=== PATIENT | male | born 1970 | race African-American/Black ===

== ENCOUNTER → 2016-10-02 | Outpatient (CLI) | payer MEDICAID ==
[2016-10-02 13:56] LABS: ABSOLUTE EOSINOPHILS # (AUTO) 0.7 10^3/uL (0.0-0.6); ABSOLUTE MONOCYTES (AUTO) 0.7 10^3/uL (0.1-1.4); ABSOLUTE NEUT (AUTO) 7.1 10^3/uL (1.7-8.2); BASOPHILS % (AUTO) 0.4 % (0-2); EOSINOPHILS % (AUTO) 5.8 % (0-6); HEMATOCRIT 43.8 % (37.9-51.0); HEMOGLOBIN 14.7 g/dL (13.5-17.0); HGB HCT DIFFERENCE 0.3; LYMPHOCYTES % (AUTO) 31.8 % (13-45); MEAN CORPUSCULAR HEMOGLOBIN 28.4 pg (27.0-33.4); MEAN CORPUSCULAR HGB CONC 33.5 g/dL (32.0-36.0); MEAN CORPUSCULAR VOLUME 85 fl (80-97); MONOCYTES % (AUTO) 5.6 % (3-13); RED BLOOD COUNT 5.16 10^6/uL (4.35-5.55); RED CELL DISTRIBUTION WIDTH 15.9 % (11.5-14.0); SEGMENTED NEUTROPHILS % (AUTO) 56.4 % (42-78); WHITE BLOOD COUNT 12.5 10^3/uL (4.0-10.5)
[2016-10-02 14:36] LABS: ERYTHROCYTE SEDIMENTATION RATE 9 mm/hr (0-15)
== END ==
LOC: OD 13:15
PROVIDERS: ATTEND Orthopaedic Surgery
DX: S61.452A Open bite of left hand, initial encounter (principal); X58.XXXA Exposure to other specified factors, initial encounter
CPT/HCPCS: 36415; 85025; 85652; 86140

== ENCOUNTER 2017-07-11 14:52 | Emergency (ER) | payer MEDICAID ==
--- NOTE | 2017-07-11 15:58 | ER Document Report ---
ED General - General Chief Complaint: Chest Pain Stated Complaint: BACK PAIN Time Seen by Provider: 07/11/17 15:44 Notes: 46-year-old male smoker presents with chest pain left-sided, associated with left scapular pain, the pain does not radiate but they started the same time. They were intermittent for 2 days and had not been constant since he woke up this morning. Described as dull and relieved when he puts his hand on his left chest. Certain positions make it worse as well. Nonpleuritic. Mild shortness of breath and cough which is been constant for him given that he is a smoker. No phlegm no hemoptysis no leg swelling. Apparently had a negative stress test here a couple years back. TRAVEL OUTSIDE OF THE [place] IN LAST 30 DAYS: No - Related Data Allergies/Adverse Reactions: acetaminophen Allergy (Verified 07/11/17 16:37) Past Medical History - Social History Smoking Status: Current Every Day Smoker Smoking Education Provided: Yes - The patient ED visit today was directly related to their abuse of tobacco. Family History: Reviewed & Not Pertinent, Hypertension - Past Medical History Cardiac Medical History: Reports: Hx Hypertension Denies: Hx Heart Attack Psychiatric Medical History: Reports: Hx Anxiety, Hx Attention Deficit Hyperactivity Disorder, Hx Depression, Hx Post Traumatic Stress Disorder Past Surgical History: Reports: Hx Orthopedic Surgery - Ganglion cyst - Immunizations Hx Diphtheria, Pertussis, Tetanus Vaccination: Yes Physical Exam - Vital signs Vitals: Resp Pulse Ox 13 94 07/11/17 15:47 07/11/17 15:47 Course - Re-evaluation Re-evalutation: 07/11/17 17:28 46 year male presents with chest pain of 3 days duration constant since this morning with some atypical and some typical features. He does not have a pleuritic component leg swelling or hemoptysis to suggest pulmonary embolus, no ripping or tearing to suggest aortic dissection. He does have pain in his back but they appear to occur at the same time. He has some components such as when he touches it feels better, which suggest musculoskeletal etiology. We will do troponin and EKG, basic labs and reassess. Heart score 3 points/ Low Score (0-3 points)/Risk of MACE Of 0.9-1.7% 07/11/17 17:55 Reassessed at 5:55 PM. Patient 8 feels well. Troponin is negative. Hemoglobin slightly high. Likely from COPD but needs reassessment. We will do this as an outpatient. He thinks he has heartburn which he has every day. His workup today is negative and his heart score is 3 which makes him appropriate for outpatient stress testing. 07/11/17 17:56 - Vital Signs Vital signs: Temp Pulse Resp BP Pulse Ox 17 137/81 H 95 07/11/17 16:01 07/11/17 16:00 07/11/17 16:01 - Laboratory Result Diagrams: 07/11/17 15:45 07/11/17 17:00 Laboratory results interpreted by me: 07/11/17 07/11/17 15:45 17:00 WBC 10.7 H Hgb 18.5 H MCH 40.0 H MCHC 44.6 H Sodium 136.0 L Glucose 353 H - Diagnostic Test Radiology reviewed: Reports reviewed - EKG Interpretation by Me EKG shows normal: Sinus rhythm, [place] Rate: Normal When compared to previous EKG there are: Previous EKG unavailable Additional EKG results interpreted by me: 07/11/17 17:56 ST or T-wave changes noted Discharge - Discharge Clinical Impression: Chest pain Qualifiers: Chest pain type: unspecified Qualified Code(s): R07.9 - Chest pain, unspecified Condition: Good Disposition: HOME, SELF-CARE Instructions: Chest Pain of Unclear Cause ([facility]) Additional Instructions: As we discussed please contact your regular doctor at [facility] and asked them to schedule you for a stress test. Please also have your blood sugar tested because it was slightly high today
[2017-07-11 16:34] LABS: ABSOLUTE BASOPHILS # (AUTO) 0.1 10^3/uL (0.0-0.2); ABSOLUTE EOSINOPHILS # (AUTO) 0.2 10^3/uL (0.0-0.6); ABSOLUTE LYMPHOCYTES (AUTO) 3.3 10^3/uL (0.5-4.7); ABSOLUTE MONOCYTES (AUTO) 0.5 10^3/uL (0.1-1.4); ABSOLUTE NEUT (AUTO) 6.6 10^3/uL (1.7-8.2); BASOPHILS % (AUTO) 1.1 % (0-2); EOSINOPHILS % (AUTO) 1.4 % (0-6); HEMATOCRIT 41.3 % (37.9-51.0); LYMPHOCYTES % (AUTO) 30.6 % (13-45); MEAN CORPUSCULAR VOLUME 90 fl (80-97); MONOCYTES % (AUTO) 4.8 % (3-13); PLATELET COUNT 241 10^3/uL (150-450); RED BLOOD COUNT 4.61 10^6/uL (4.35-5.55); SEGMENTED NEUTROPHILS % (AUTO) 62.1 % (42-78); TOTAL CELLS COUNTED % (AUTO) 100 %; WHITE BLOOD COUNT 10.7 10^3/uL (4.0-10.5)
[2017-07-11 17:24] LABS: ANION GAP 14 (5-19)
[2017-07-11 17:27] LABS: BLOOD UREA NITROGEN 13 mg/dL (7-20); CALCIUM 9.2 mg/dL (8.4-10.2); GLUCOSE 353 mg/dL (75-110)
[2017-07-11 17:28] LABS: CARBON DIOXIDE 23 mmol/L (22-30); CHLORIDE 99 mmol/L (98-107); POTASSIUM 4.3 mmol/L (3.6-5.0)
--- NOTE | 2017-07-11 17:28 | RADIOLOGY REPORT (SQ) ---
EXAM DESCRIPTION: CHEST PA/LAT COMPLETED DATE/TIME: 07/11/2017 5:08 pm REASON FOR STUDY: SMOKER, SOB AND CP COMPARISON: None. EXAM PARAMETERS: NUMBER OF VIEWS: two views TECHNIQUE: Digital Frontal and Lateral radiographic views of the chest acquired. RADIATION DOSE: NA LIMITATIONS: none FINDINGS: LUNGS AND PLEURA: No opacities, masses or pneumothorax. No pleural effusion. MEDIASTINUM AND HILAR STRUCTURES: No masses or contour abnormalities. HEART AND VASCULAR STRUCTURES: Heart normal size. No evidence for failure. BONES: No acute findings. HARDWARE: None in the chest. OTHER: No other significant finding. IMPRESSION: NO SIGNIFICANT RADIOGRAPHIC FINDING IN THE CHEST. TECHNICAL DOCUMENTATION: JOB ID: [id number] [employer]- All Rights Reserved
[2017-07-11 18:06] VITALS: BP 144/99
[2017-07-12 11:07] LABS: HEMOGLOBIN 13.9 g/dL (13.5-17.0); MEAN CORPUSCULAR HEMOGLOBIN 30.2 pg (27.0-33.4); MEAN CORPUSCULAR HGB CONC 33.7 g/dL (32.0-36.0)
--- NOTE | 2017-07-14 12:38 | EKG REPORT ---
SEVERITY:- ABNORMAL ECG - SINUS RHYTHM LEFT ANTERIOR FASCICULAR BLOCK : Confirmed by: Iva Mendoza MD 14-Jul-2017 12:37:01
== END 2017-07-11 18:07 | disposition home or self-care (01) ==
LOC: ER 14:52
DX: R07.9 Chest pain, unspecified (principal); M54.9 Dorsalgia, unspecified; R51 Headache; R06.02 Shortness of breath; F17.200 Nicotine dependence, unspecified, uncomplicated
CPT/HCPCS: 36415; 71020; 80048; 84484; 85025; 93005; 93010; 99285

== ENCOUNTER 2017-07-12 09:38 | Inpatient (IN) | payer MEDICAID ==
[2017-07-12] MEDS ORDERED: ASPIRIN 81 MG TABLET, CHEWABLE PO ONE (09:45)
[2017-07-12] MEDS ORDERED: ONDANSETRON HCL INJ/PF 4 MG/2 ML SDV IV ONE (10:08)
[2017-07-12] MEDS ORDERED: MORPHINE SULFATE 10 MG/ML INJ IV ONE (10:08)
[2017-07-12] MEDS ORDERED: NORMAL SALINE 500 ML IV ONE (10:09)
--- NOTE | 2017-07-12 10:15 | ER Document Report ---
ED General - General Chief Complaint: Chest Pain Stated Complaint: CHEST PAIN Time Seen by Provider: 07/12/17 09:45 Notes: 46-year-old male presents with chest pain. He was seen yesterday by me, for some chest pain and back pain. He had a negative EKG and troponin was discharged home, for outpatient stress testing. He returned stating that the pain continues. The pain is just as the same and it still also hurts in his left scapular region. This is been constant all night since he left. He also now has pain across his upper abdomen "like I have to prove" however he only took a small amount. No vomiting or fever. No diarrhea. He was seen at triage where CT angios of his aorta was ordered. TRAVEL OUTSIDE OF THE [place] IN LAST 30 DAYS: No - Related Data Allergies/Adverse Reactions: acetaminophen Allergy (Verified 07/11/17 16:37) Past Medical History - Social History Smoking Status: Current Every Day Smoker Chew tobacco use (# tins/day): No Smoking Education Provided: Yes - The patient ED visit today was directly related to their abuse of tobacco. Frequency of alcohol use: None Drug Abuse: None Family History: Reviewed & Not Pertinent, Hypertension Patient has suicidal ideation: No Patient has homicidal ideation: No - Past Medical History Cardiac Medical History: Reports: Hx Hypertension Denies: Hx Heart Attack Renal/ Medical History: Denies: Hx Peritoneal Dialysis Psychiatric Medical History: Reports: Hx Anxiety, Hx Attention Deficit Hyperactivity Disorder, Hx Depression, Hx Post Traumatic Stress Disorder Past Surgical History: Reports: Hx Orthopedic Surgery - Ganglion cyst - Immunizations Hx Diphtheria, Pertussis, Tetanus Vaccination: Yes Review of Systems - Review of Systems Notes: REVIEW OF SYSTEMS GEN: Denies fever, chills, weight loss ENT: Denies sore throat, nasal discharge, ear pain EYES: Denies blurry vision, eye pain, discharge CV: Chest pain, palpitations, edema RESP: Denies cough, shortness of breath, wheezing GI: Pain, denies nausea, vomiting, diarrhea MSK: Denies joint pain/swelling, edema, back pain SKIN: Denies rash, skin lesions LYMPH: Denies swollen glands/lymph nodes NEURO: Denies headache, focal weakness or numbness, dizziness PSYCH: Denies depression, suicidal or homicidal ideation PHYSICAL EXAMINATION General: Mild distress. Head: Atraumatic, normocephalic ENT: Mouth normal, oropharynx moist, no exudates or tonsillar enlargement Eyes: Conjunctiva normal, pupils equal, lids normal Neck: No JVD, supple, no guarding CVS: Normal rate, regular rhythm, no murmurs Resp: No resp distress, equal and normal breath sounds bilaterally GI: Nondistended, soft, no tenderness to palpation, no rebound or guarding Ext: No deformities, no edema, normal range of motion in upper and lower ext Back: No CVA or midline TTP Skin: No rash, warm Lymphatic: No lymphadeopathy noted Neuro: Awake, alert. Face symmetric. GCS 15. Physical Exam - Vital signs Vitals: Temp Pulse Resp BP Pulse Ox 98.6 F 104 H 20 143/89 H 95 07/12/17 09:49 07/12/17 09:49 07/12/17 09:49 07/12/17 09:49 07/12/17 09:49 Course - Re-evaluation Re-evalutation: 07/12/17 10:54 46-year-old male presents with ongoing chest pain. Negative troponin yesterday. Now has a separate abdominal pain. Concern for aortic dissection versus angina. Patient was already radiology for a CT of his aorta before I saw him. He was given nitroglycerin which brought his pain down some but it still hurts. His exam is normal without murmurs peripheral pulse deficits or focal lung findings. If his CTA is negative I am most concerned for unstable angina. Will admit him , consider Lovenox. 07/12/17 11:24 Labs show anion gap hyperglycemia and leukocytosis. I am concerned for diabetic ketoacidosis. The lab called to say that the sample was lipemic. This likely reflects extreme hyperlipidemia with developing pancreatitis and DKA. I think that as long as the troponin is negative I would shy away from cardiac etiology at this point. Patient will have a second IV started, IV fluids will be given for hydration, potassium will be given as well as insulin drip started with bolus. Discussed case with Dr. Zaragoza who will admit the [facility]. 07/12/17 11:28 - Vital Signs Vital signs: Temp Pulse Resp BP Pulse Ox 98.6 F 104 H 15 169/88 H 95 07/12/17 09:49 07/12/17 09:49 07/12/17 10:54 07/12/17 10:54 07/12/17 10:54 - Laboratory Result Diagrams: 07/12/17 10:20 07/12/17 10:20 Laboratory results interpreted by me: 07/12/17 07/12/17 10:20 10:20 WBC 18.4 H Seg Neutrophils % 78.2 H Absolute Neutrophils 14.4 H Sodium 134.9 L Carbon Dioxide 16 L Glucose 380 H Direct Bilirubin 0.5 H ALT 84 H Alkaline Phosphatase 142 H Total Protein 8.5 H - Diagnostic Test Radiology reviewed: Image reviewed, Reports reviewed - EKG Interpretation by Me EKG shows normal: Sinus rhythm Rate: Tachycardia Voltage: Increased voltage When compared to previous EKG there are: Changes noted - Subtle changes in the morphology of the J-point/ST/T waves in the precordium but no natalio ST elevation or depression Critical Care Note - Critical Care Note Total time excluding time spent on procedures (mins): 35 Comments: The above patient is critically ill. Not including procedures, but including direct re-evaluations, speaking with patient and/or consultants, interpreting results, and documenting, I spent the total amount of minute listed listed above on critical care time Discharge - Discharge Clinical Impression: High anion gap metabolic acidosis Diabetic ketoacidosis Qualifiers: Diabetes mellitus type: type 2 Diabetes mellitus complication detail: without coma Qualified Code(s): E11.10 - Type 2 diabetes mellitus with ketoacidosis without coma Condition: Critical Disposition: ADMITTED INPATIENT Unit Admitted: [facility]
--- NOTE | 2017-07-12 10:17 | ER Document Report ---
ED Medical Screen (RME) - General Chief Complaint: Chest Pain Stated Complaint: CHEST PAIN Time Seen by Provider: 07/12/17 09:45 Notes: Patient is a 46-year-old male who comes in complaining of left-sided chest pain that goes into his back. Patient is not complaining of pain to his abdomen. States that pain has gotten worse since yesterday. He had been referred for outpatient stress testing. Denies any difficulty breathing or cough or fever. TRAVEL OUTSIDE OF THE [place] IN LAST 30 DAYS: No - Related Data Allergies/Adverse Reactions: acetaminophen Allergy (Verified 07/11/17 16:37) Past Medical History - Social History Chew tobacco use (# tins/day): No Frequency of alcohol use: None Drug Abuse: None - Past Medical History Cardiac Medical History: Reports: Hx Hypertension Denies: Hx Heart Attack Renal/ Medical History: Denies: Hx Peritoneal Dialysis Psychiatric Medical History: Reports: Hx Anxiety, Hx Attention Deficit Hyperactivity Disorder, Hx Depression, Hx Post Traumatic Stress Disorder Past Surgical History: Reports: Hx Orthopedic Surgery - Ganglion cyst - Immunizations Hx Diphtheria, Pertussis, Tetanus Vaccination: Yes Review of Systems - Review of Systems Cardiovascular: Chest pain Gastrointestinal: Abdominal pain Physical Exam - Vital signs Vitals: Temp Pulse Resp BP Pulse Ox 98.6 F 104 H 20 143/89 H 95 07/12/17 09:49 07/12/17 09:49 07/12/17 09:49 07/12/17 09:49 07/12/17 09:49 Interpretation: Tachycardic - General General appearance: Alert, Other - Appears uncomfortable - Respiratory Respiratory status: Tripod position Course - Re-evaluation Re-evalutation: 07/12/17 10:17 labs, cta ordered in triage. CT aware. IV being placed in triage - Vital Signs Vital signs: Temp Pulse Resp BP Pulse Ox 98.6 F 104 H 20 143/89 H 95 07/12/17 09:49 07/12/17 09:49 07/12/17 09:49 07/12/17 09:49 07/12/17 09:49
[2017-07-12 10:34] LABS: ABSOLUTE BASOPHILS # (AUTO) 0.1 10^3/uL (0.0-0.2); ABSOLUTE EOSINOPHILS # (AUTO) 0.1 10^3/uL (0.0-0.6); ABSOLUTE LYMPHOCYTES (AUTO) 2.9 10^3/uL (0.5-4.7); ABSOLUTE NEUT (AUTO) 14.4 10^3/uL (1.7-8.2); BASOPHILS % (AUTO) 0.4 % (0-2); EOSINOPHILS % (AUTO) 0.7 % (0-6); HEMATOCRIT 45.6 % (37.9-51.0); LYMPHOCYTES % (AUTO) 15.5 % (13-45); MEAN CORPUSCULAR VOLUME 90 fl (80-97); MONOCYTES % (AUTO) 5.2 % (3-13); PLATELET COUNT 239 10^3/uL (150-450); RED BLOOD COUNT 5.08 10^6/uL (4.35-5.55); RED CELL DISTRIBUTION WIDTH 13.5 % (11.5-14.0); SEGMENTED NEUTROPHILS % (AUTO) 78.2 % (42-78); TOTAL CELLS COUNTED % (AUTO) 100 %; WHITE BLOOD COUNT 18.4 10^3/uL (4.0-10.5)
[2017-07-12] MEDS: NITROGLYCERIN 0.4 MG/TAB 25 TAB/BOTTLE SL PRN ×2 (10:41→10:48)
[2017-07-12 10:57] LABS: MEAN CORPUSCULAR HEMOGLOBIN 30.1 pg (27.0-33.4); MEAN CORPUSCULAR HGB CONC 33.6 g/dL (32.0-36.0)
[2017-07-12 11:03] LABS: CREATINE KINASE MB 0.29 ng/mL (<4.55)
[2017-07-12 11:04] LABS: TROPONIN I 0.013 ng/mL
[2017-07-12] MEDS ORDERED: NICOTINE 14 MG/24 HR PATCH.TD24 TD ONE (11:14)
[2017-07-12 11:16] LABS: ALANINE AMINOTRANSFERASE 84 U/L (21-72); ALKALINE PHOSPHATASE 142 U/L (38-126); ANION GAP 18 (5-19); ASPARTATE AMINO TRANSFERASE 47 U/L (17-59); BLOOD UREA NITROGEN 7 mg/dL (7-20); CALCIUM 9.5 mg/dL (8.4-10.2); CARBON DIOXIDE 16 mmol/L (22-30); CHLORIDE 101 mmol/L (98-107); GLUCOSE 380 mg/dL (75-110); HEMOGLOBIN 15.3 g/dL (13.5-17.0); POTASSIUM 4.6 mmol/L (3.6-5.0); SODIUM 134.9 mmol/L (137-145)
[2017-07-12 11:17] LABS: BILIRUBIN,DIRECT 0.5 mg/dL (0.0-0.4); BILIRUBIN,TOTAL 0.6 mg/dL (0.2-1.3); CREATINE KINASE 67 U/L (55-170); TOTAL PROTEIN 8.5 g/dL (6.3-8.2)
[2017-07-12] MEDS ORDERED: FENTANYL CITRATE INJ/PF 100 MCG/2 ML AMPUL IV ONE (11:17)
[2017-07-12] MEDS ORDERED: NORMAL SALINE 100 ML with INSULIN REGULAR, HUMAN 100 UNIT IV PRN ×2 (11:19)
[2017-07-12] MEDS ORDERED: NORMAL SALINE 1000 ML 1,000 ML IV ONE (11:19)
[2017-07-12] MEDS ORDERED: INSULIN REG, HUMAN 100 UNIT/ML 3 ML VIAL (PYX) IV ONE (11:20)
[2017-07-12] MEDS ORDERED: LACTULOSE SYRUP 20 GM/30 ML UDCUP PO ONE ×2 (11:29→15:30)
[2017-07-12] MEDS ORDERED: HYDRALAZINE HCL INJ/PF 20 MG/1 ML SDV IV PRN (11:35)
[2017-07-12] MEDS ORDERED: DEXTROSE 50%-WATER 25 GM/50 ML DISP.SYRIN IV PRN ×2 (11:36)
[2017-07-12] MEDS ORDERED: GLUCAGON,HUMAN RECOMB 1 MG INJ IM PRN (11:36)
[2017-07-12] MEDS ORDERED: DEXTROSE 40% GEL 15 GM TUBE PO PRN ×2 (11:36)
[2017-07-12] MEDS ORDERED: ACETAMINOPHEN 325 MG TABLET PO PRN (11:36)
[2017-07-12] MEDS ORDERED: IPRATROPIUM/ALBUTEROL 0.5-2.5 MG/3 ML AMPUL NEB PRN (11:36)
[2017-07-12] MEDS ORDERED: MAG HYDROX/AL HYDROX/SIMETH SUSP 30 ML UDCUP PO PRN (11:36)
--- NOTE | 2017-07-12 11:42 | RADIOLOGY REPORT (SQ) ---
EXAM DESCRIPTION: CTA CHEST; CTA ABDOMEN/PELVIS W WO COMPLETED DATE/TIME: 07/12/2017 10:40 am REASON FOR STUDY: Chest pain; pain, evalaute aorta COMPARISON: Two-view chest 07/11/2017, 12/28/2011 CONTRAST TYPE AND DOSE: contrast/concentration: Isovue 370.00 mg/ml; Total Contrast Delivered: 85.0 ml; Total Saline Delivered: 70.0 ml RENAL FUNCTION: Creatinine 0.71 TECHNIQUE: CT angio of the chest performed using helical scanning technique with dynamic intravenous contrast injection. Multiplanar Maximum intensity projected images through the thoracic aorta and p ulmonary artery. Images reviewed with lung, soft tissue and bone windows. Reconstructed coronal and sagittal MPR images reviewed. All images stored on PACS. CT angio of the abdomen and pelvis performed with intravenous and without oral contrastusing helical scanning technique with dynamic intravenous contrast injection. Multiplanar Maximum intensity projec ale images of the abdominal aorta and major branches. Images reviewed with lung, soft tissue and bon e windows. Reconstructed coronal and sagittal MPR images reviewed. Delayed images for evaluation of the urinary system also acquired and evaluated. All images stored on PACS. All CT scanners at this facility use dose modulation, iterative reconstruction, and/or weight based d osing when appropriate to reduce radiation dose to as low as reasonably achievable (ALARA). [facility]: Dose Right [facility]: CareDose [facility]: Dose Right [facility]: Teradose 4D [facility]: Smart SpinVox RADIATION DOSE: CT Rad equipment meets quality standard of care and radiation dose reduction techniq ues were employed. CTDIvol: 11.3 - 22.1 mGy. DLP: 2485 mGy-cm. . LIMITATIONS: None. FINDINGS: CHEST: LUNGS AND PLEURA: No opacities, nodules, masses. No pneumothorax. No effusions. HILAR AND MEDIASTINAL STRUCTURES: No identified masses or abnormal nodes. HEART AND VASCULAR STRUCTURES: No aneurysm or dissection. No acute pulmonary emboli. No pericardial effusion. HARDWARE: None. THYROID AND OTHER SOFT TISSUES: No masses. No adenopathy. BONES: No significant finding. OTHER: No other significant finding. ABDOMEN AND PELVIS: LIVER: Normal size. No masses. No dilated ducts. SPLEEN: Normal size. No focal lesions. PANCREAS: There is retroperitoneal inflammation, along the uncinate process of pancreas and 3rd porti on of duodenum from acute pancreatitis. No well circumscribed abscess or fluid collection/ pseudocys t. No free intraperitoneal fluid. No lesser sac fluid. Normal contrast enhancement of the superior mesenteric artery and vein, and portal vein. Findings discussed with Dr. Foy. GALLBLADDER: No identified stones by CT criteria. No inflammatory changes to suggest cholecystitis. ADRENAL GLANDS: No significant masses or asymmetry. RIGHT KIDNEY AND URETER: No solid masses. No significant calcification. No hydronephrosis or hydroure ter. LEFT KIDNEY AND URETER: No solid masses. No significant calcification. No hydronephrosis or hydrouret er. AORTA AND VESSELS: No aneurysm. No dissection. Renal arteries, SMA, celiac without stenosis. RETROPERITONEUM: No retroperitoneal adenopathy, hemorrhage or masses. BOWEL AND PERITONEAL CAVITY: No masses or inflammatory changes. No free fluid or peritoneal masses. APPENDIX: Normal. ABDOMINAL WALL: No masses. No hernias. BONES: No significant or acute findings. PELVIS: No other significant finding. No free pelvic fluid. Bladder prostate rectum unremarkable. No adenopathy. IMPRESSION: No CT angio evidence of thoracic or abdominal aortic dissection No acute pulmonary emboli There are early changes of pancreatitis surround the uncinate process of pancreas, with retroperitone al fluid present. NORMAL CT OF THE ABDOMEN AND PELVIS WITH ORAL AND INTRAVENOUS CONTRAST. TECHNICAL DOCUMENTATION: JOB ID: [id number] Quality ID # [id number]: Final reports with documentation of one or more dose reduction techniques (e.g., Au tomated exposure control, adjustment of the mA and/or kV according to patient size, use of iterative reconstruction technique) 2010 [employer]- All Rights Reserved
[2017-07-12] MEDS: POTASSI CL 20 MEQ/50 ML RIDER 20 MEQ/50 ML RTUPB IV SCH ×2 (11:56→13:43)
[2017-07-12] MEDS ORDERED: INSULIN REG, HUMAN 100 UNIT/ML 3 ML VIAL (PYX) ONE (11:59)
[2017-07-12] MEDS: HUM INSULIN NPH/REG INSULIN HM 100 UNIT/1 ML 3 ML SUBCUT SCH ×2 (13:43→23:39)
[2017-07-12] MEDS: HEPARIN SOD (PORCINE) 5,000 UNIT/ML 1 ML SYRINGE SUBCUT SCH ×2 (13:44→21:27)
[2017-07-12] MEDS: KETOROLAC TROMETHAMINE INJ/PF 30 MG/1 ML SDV IV PRN ×2 (13:44→19:49)
[2017-07-12] MEDS ORDERED: INFLUENZA ADLT QUAD (36MOS+) 2017-18 VAC 0.5 ML SYR IM PRN (13:56)
[2017-07-12 15:35] LABS: ANION GAP 14 (5-19)
[2017-07-12 15:37] LABS: BLOOD UREA NITROGEN 6 mg/dL (7-20); CALCIUM 8.7 mg/dL (8.4-10.2); CARBON DIOXIDE 17 mmol/L (22-30); CHLORIDE 106 mmol/L (98-107); GLUCOSE 199 mg/dL (75-110); POTASSIUM 4.1 mmol/L (3.6-5.0); SODIUM 137.3 mmol/L (137-145)
[2017-07-12] MEDS ORDERED: POTASSIUM CHLORIDE 20 MEQ/50 ML RTU IV ONE (16:00)
--- NOTE | 2017-07-12 16:31 | PDOC CONSULTATION ---
Consultation Consult Date: 07/12/17 Consult reason:: Pancreatitis History of Present Illness Admission Date/PCP: 07/12/17 11:46 KIMBERLY RASMUSSEN PA-C Patient complains of: Upper quadrant pains radiating to left back History of Present Illness: RAYNA YOUNG is a 46 year old male C/O of left chest pains and seen at ED last night and sent home when cardiac work-up was clear.Came back this am at ED with severe upper abdominal pains and left back pains with nausea. Ct scan of abd showed pancreatitis with retroperitoneal fluid. No stone in gallbladder. His blood though was lipemic. BS also elevated. + family history for DM. Father has DM. Past Medical History Cardiac Medical History: Reports: Hypertension Denies: Myocardial Infarction Psychiatric Medical History: Reports: Attention Deficit Hyperactivity Disorder, Depression, Post Traumatic Stress Disorder Hematology: Denies: Anemia, Sickle Cell Disease Past Surgical History Past Surgical History: Reports: Orthopedic Surgery - Ganglion cyst Social History Smoking Status: Current Every Day Smoker Cigarettes Packs Per Day: 0.5 Frequency of Alcohol Use: Rare Hx Recreational Drug Use: No Hx Prescription Drug Abuse: No - Advance Directive Resuscitation Status: Full Code Family History Family History: Reviewed & Not Pertinent, Hypertension Parental Family History Reviewed: Yes - father has DM Children Family History Reviewed: No Sibling(s) Family History Reviewed.: No Medication/Allergy Home Medications: No Home Medications 07/12/17 Allergies/Adverse Reactions: acetaminophen Allergy (Verified 07/11/17 16:37) Review of Systems Constitutional: PRESENT: other - no fever/chills Eyes: PRESENT: other - no visual or hearing problems Cardiovascular: PRESENT: chest pain Respiratory: PRESENT: other - no hemoptysis Gastrointestinal: PRESENT: abdominal pain, nausea Genitourinary: PRESENT: other - no dysuria Musculoskeletal: PRESENT: back pain Integumentary: PRESENT: other - no rash Neurological: PRESENT: other - no seizures Psychiatric: PRESENT: other - no hallucinations Endocrine: PRESENT: other - no polyuria/polydipsia Hematologic/Lymphatic: PRESENT: other - no easy bruisability Physical Exam Vital Signs: Temp Pulse Resp BP Pulse Ox 98.3 F 94 19 131/79 H 97 07/12/17 13:04 07/12/17 14:00 07/12/17 13:04 07/12/17 13:04 07/12/17 13:04 General appearance: PRESENT: mild distress Head exam: PRESENT: atraumatic Eye exam: PRESENT: conjunctiva pink Mouth exam: PRESENT: moist, tongue midline Neck exam: PRESENT: full ROM Respiratory exam: PRESENT: clear to auscultation anastasia Cardiovascular exam: PRESENT: RRR Pulses: PRESENT: normal radial pulses Vascular exam: PRESENT: normal capillary refill GI/Abdominal exam: PRESENT: tenderness - upper abdomen Rectal exam: PRESENT: deferred Extremities exam: PRESENT: full ROM Musculoskeletal exam: PRESENT: ambulatory Neurological exam: PRESENT: alert, oriented to person, oriented to place, oriented to time, oriented to situation Psychiatric exam: PRESENT: appropriate affect Focused psych exam: PRESENT: restlessness Skin exam: PRESENT: normal color, warm Results Laboratory Results: 07/12/17 14:48 07/12/17 14:48 Sodium 137.3 Potassium 4.1 Chloride 106 Carbon Dioxide 17 L Anion Gap 14 BUN 6 L Creatinine 0.66 Est GFR ( Amer) > 60 Est GFR (Non-Af Amer) > 60 Glucose 199 H Calcium 8.7 Impressions: Chest/Abdomen CTA 07/12/17 10:04 IMPRESSION: No CT angio evidence of thoracic or abdominal aortic dissection No acute pulmonary emboli There are early changes of pancreatitis surround the uncinate process of pancreas, with retroperitoneal fluid present. NORMAL CT OF THE ABDOMEN AND PELVIS WITH ORAL AND INTRAVENOUS CONTRAST. Abdomen/Pelvis CTA 07/12/17 10:08 IMPRESSION: No CT angio evidence of thoracic or abdominal aortic dissection No acute pulmonary emboli There are early changes of pancreatitis surround the uncinate process of pancreas, with retroperitoneal fluid present. NORMAL CT OF THE ABDOMEN AND PELVIS WITH ORAL AND INTRAVENOUS CONTRAST. Assessment & Plan - Time Time Spent: 30 to 50 Minutes - Inpatient Certification Medical Necessity: Significant Comorbidiites Make Outpatient Treatment Too Risky , Need For IV Fluids, Need for Pain Control, Risk of Complication if Not Cared For in Hospital - Plan Summary Plan Summary: Hydrate Pain mx US gallbladder Monitor labs CBC/Lipase/LFTs
[2017-07-12] MEDS ORDERED: HYDROMORPHONE HCL INJ/PF 2 MG/ML AMPULE ONE (16:48)
--- NOTE | 2017-07-12 16:50 | PDOC H&P ---
History of Present Illness Admission Date/PCP: 07/12/17 11:46 KIMBERLY RASMUSSEN PA-C Patient complains of: Abdominal pain and nausea History of Present Illness: RAYNA YOUNG is a 46 year old male with a past medical history of ADD, hypertension and tobacco Dependence. Patient presents with 48 hours of nausea and abdominal pain denying fever chills or chest pain. In the emergency room he was found to have metabolic acidosis with hyperglycemia and a CT of the abdomen showing pancreatic inflammation with retroperitoneal fluid. He is referred to the hospitalist for admission. Patient denies alcohol or recent illness or medications. He does admit frequent nausea, polydipsia and polyuria. Past Medical History Cardiac Medical History: Reports: Hypertension Denies: Myocardial Infarction Psychiatric Medical History: Reports: Attention Deficit Hyperactivity Disorder, Depression, Post Traumatic Stress Disorder Hematology: Denies: Anemia, Sickle Cell Disease Past Surgical History Past Surgical History: Reports: Orthopedic Surgery - Ganglion cyst Social History Information Source: Patient Smoking Status: Current Every Day Smoker Cigarettes Packs Per Day: 0.5 Frequency of Alcohol Use: Rare Hx Recreational Drug Use: No Hx Prescription Drug Abuse: No - Advance Directive Resuscitation Status: Full Code Family History Family History: DM, Hypertension Parental Family History Reviewed: Yes Children Family History Reviewed: Yes Sibling(s) Family History Reviewed.: Yes Medication/Allergy Home Medications: No Home Medications 07/12/17 Allergies/Adverse Reactions: acetaminophen Allergy (Verified 07/11/17 16:37) Review of Systems Constitutional: PRESENT: as per HPI, fatigue. ABSENT: chills, fever(s), headache(s), weight gain, weight loss Eyes: ABSENT: visual disturbances Ears: ABSENT: hearing changes Cardiovascular: ABSENT: chest pain, dyspnea on exertion, edema, orthropnea, palpitations Respiratory: ABSENT: cough, hemoptysis Gastrointestinal: PRESENT: abdominal pain, bloating, constipation, nausea, vomiting - Gastric content only no blood. ABSENT: coffee ground emesis, diarrhea Genitourinary: ABSENT: dysuria, hematuria Musculoskeletal: ABSENT: joint swelling Integumentary: ABSENT: rash, wounds Neurological: ABSENT: abnormal gait, abnormal speech, confusion, dizziness, focal weakness, syncope Psychiatric: ABSENT: anxiety, depression, homidical ideation, suicidal ideation Endocrine: PRESENT: polydipsia, polyphagia, polyuria Hematologic/Lymphatic: ABSENT: easy bleeding, easy bruising Physical Exam Vital Signs: Temp Pulse Resp BP Pulse Ox 98.3 F 94 19 131/79 H 97 07/12/17 13:04 07/12/17 14:00 07/12/17 13:04 07/12/17 13:04 07/12/17 13:04 General appearance: PRESENT: mild distress, well-developed, well-nourished Head exam: PRESENT: atraumatic, normocephalic Eye exam: PRESENT: conjunctiva pink, EOMI, PERRLA. ABSENT: scleral icterus Ear exam: PRESENT: normal external ear exam Mouth exam: PRESENT: moist, tongue midline Neck exam: ABSENT: carotid bruit, JVD, lymphadenopathy, thyromegaly Respiratory exam: PRESENT: clear to auscultation anastasia. ABSENT: rales, rhonchi, wheezes Cardiovascular exam: PRESENT: RRR. ABSENT: diastolic murmur, rubs, systolic murmur Pulses: PRESENT: normal dorsalis pedis pul Vascular exam: PRESENT: normal capillary refill GI/Abdominal exam: PRESENT: soft. ABSENT: distended, guarding, mass, organolmegaly, rebound, tenderness Rectal exam: PRESENT: deferred Extremities exam: PRESENT: full ROM. ABSENT: calf tenderness, clubbing, pedal edema Neurological exam: PRESENT: alert, awake, oriented to person, oriented to place , oriented to time, oriented to situation, CN II-XII grossly intact. ABSENT: motor sensory deficit Psychiatric exam: PRESENT: appropriate affect, normal mood. ABSENT: homicidal ideation, suicidal ideation Skin exam: PRESENT: dry, intact, warm. ABSENT: cyanosis, rash Results Laboratory Results: 07/12/17 14:48 07/12/17 14:48 Sodium 137.3 Potassium 4.1 Chloride 106 Carbon Dioxide 17 L Anion Gap 14 BUN 6 L Creatinine 0.66 Est GFR ( Amer) > 60 Est GFR (Non-Af Amer) > 60 Glucose 199 H Calcium 8.7 Impressions: Chest/Abdomen CTA 07/12/17 10:04 IMPRESSION: No CT angio evidence of thoracic or abdominal aortic dissection No acute pulmonary emboli There are early changes of pancreatitis surround the uncinate process of pancreas, with retroperitoneal fluid present. NORMAL CT OF THE ABDOMEN AND PELVIS WITH ORAL AND INTRAVENOUS CONTRAST. Abdomen/Pelvis CTA 07/12/17 10:08 IMPRESSION: No CT angio evidence of thoracic or abdominal aortic dissection No acute pulmonary emboli There are early changes of pancreatitis surround the uncinate process of pancreas, with retroperitoneal fluid present. NORMAL CT OF THE ABDOMEN AND PELVIS WITH ORAL AND INTRAVENOUS CONTRAST. Assessment & Plan - Diagnosis (1) Diabetic ketoacidosis Qualifiers: Diabetes mellitus type: type 2 Diabetes mellitus complication detail: without coma Qualified Code(s): E11.10 - Type 2 diabetes mellitus with ketoacidosis without coma Is this a current diagnosis for this admission?: Yes Plan: Diabetic ketoacidosis patient has had some degree of polyuria polydipsia with nausea and uncontrolled hyperglycemia with supporting labs. Patient will receive IV fluids IV insulin serial chemistries every 6 hours for evaluation for electrolyte repletion. New diagnosis of diabetes and diabetic education (2) Pancreatitis Is this a current diagnosis for this admission?: Yes Plan: Atypical inflammation of the pancreas with retroperitoneal fluid and a normal lipase. N.p.o., IV fluid challenge, supportive measures and surgical consult (3) Chest pain Qualifiers: Chest pain type: unspecified Qualified Code(s): R07.9 - Chest pain, unspecified Is this a current diagnosis for this admission?: Yes Plan: Atypical chest pain though the patient's pain is atypical there are multiple risk factors for coronary artery disease and subsequently will observe and evaluation of acute coronary syndrome versus coronary artery disease with anginal equivalents. Cardiac monitoring blood pressure Q6 hours ,TSH, lipid profile, serial cardiac enzymes and consider cardiac stress test - Time Time Spent: 50 to 70 Minutes - Inpatient Certification Medical Necessity: Need Close Monitoring Due to Risk of Patient Decompensation
[2017-07-12] MEDS: NORMAL SALINE 1000 ML 1,000 ML IV SCH ×2 (16:55→22:00)
--- NOTE | 2017-07-12 17:44 | RADIOLOGY REPORT (SQ) ---
EXAM DESCRIPTION: U/S ABDOMEN LIMITED W/O DOP COMPLETED DATE/TIME: 07/12/2017 5:35 pm REASON FOR STUDY: abdominal pain COMPARISON: None. TECHNIQUE: Dynamic and static grayscale images acquired of the right upper quadrant and recorded on PACS. Additional selected color Doppler and spectral images recorded. LIMITATIONS: Study limited due to acoustical interference from fat or from air in the bowel. FINDINGS: PANCREAS: Obscured by bowel gas. LIVER: Enlarged, measuring 19.5 cm. Echotexture is coarse with increased echogenicity consistent wit h fatty infiltration. No masses. LIVER VASCULATURE: Normal directional flow of the main portal vein and hepatic veins. GALLBLADDER: No stones. Normal wall thickness. No pericholecystic fluid. ULTRASOUND-DETECTED BRENNAN'S SIGN: Negative. INTRAHEPATIC DUCTS AND COMMON DUCT: CBD and intrahepatic ducts normal caliber. No filling defects. INFERIOR VENA CAVA: Normal flow. AORTA: Poorly visualized and obscured by bowel gas. RIGHT KIDNEY: Normal size. Normal echogenicity. No solid or suspicious masses. No hydronephrosis. No calcifications. PERITONEAL CAVITY AND RIGHT PLEURAL SPACE: No ascites or effusions. OTHER: No other significant finding. IMPRESSION: HEPATOMEGALY WITH DIFFUSE FATTY INFILTRATION OF THE LIVER. PANCREAS OBSCURED. OTHERWISE NORMAL RIGHT UPPER QUADRANT ULTRASOUND. TECHNICAL DOCUMENTATION: JOB ID: [id number] [employer]- All Rights Reserved
[2017-07-12] MEDS: INSULIN LISPRO 100 UNIT/ML 3 ML VIAL SUBCUT PRN (18:36)
[2017-07-12 18:52] LABS: ANION GAP 15 (5-19)
[2017-07-12 18:56] LABS: BLOOD UREA NITROGEN 7 mg/dL (7-20); CALCIUM 9.1 mg/dL (8.4-10.2); GLUCOSE 192 mg/dL (75-110)
[2017-07-12 18:57] LABS: CARBON DIOXIDE 19 mmol/L (22-30); CHLORIDE 104 mmol/L (98-107); POTASSIUM 4.2 mmol/L (3.6-5.0); SODIUM 137.7 mmol/L (137-145)
[2017-07-12] MEDS ORDERED: KETOROLAC TROMETHAMINE INJ/PF 30 MG/1 ML SDV IV ONE (20:22)
[2017-07-12] MEDS: HYDROMORPHONE HCL INJ/PF 2 MG/ML AMPULE IV PRN (21:27)
[2017-07-12 21:32] LABS: APPEARANCE,URINE SLIGHTLY-CLOUDY; BILIRUBIN,URINE NEGATIVE (NEGATIVE); COLOR,URINE YELLOW; GLUCOSE, URINE 50 mg/dL (NEGATIVE); KETONES,URINE TRACE mg/dL (NEGATIVE); LEUKOCYTE ESTERASE,URINE NEGATIVE (NEGATIVE); NITRITE,URINE NEGATIVE (NEGATIVE); PROTEIN,URINE 30 mg/dL (NEGATIVE); URINE SPECIFIC GRAVITY 1.038; UROBILINOGEN,URINE NEGATIVE mg/dL (<2.0)
[2017-07-12 21:46] LABS: URINE AMPHETAMINES SCREEN NEGATIVE; URINE BARBITURATES SCREEN NEGATIVE; URINE BENZODIAZEPINES SCREEN NEGATIVE; URINE COCAINE SCREEN NEGATIVE; URINE MARIJUANA (THC) SCREEN NEGATIVE; URINE METHADONE SCREEN NEGATIVE; URINE PHENCYCLIDINE SCREEN NEGATIVE
[2017-07-12 22:02] LABS: ANION GAP 13 (5-19)
[2017-07-12 22:06] LABS: BLOOD UREA NITROGEN 7 mg/dL (7-20); CALCIUM 8.8 mg/dL (8.4-10.2); GLUCOSE 198 mg/dL (75-110); POTASSIUM 3.8 mmol/L (3.6-5.0)
[2017-07-12 22:07] LABS: CARBON DIOXIDE 20 mmol/L (22-30); CHLORIDE 105 mmol/L (98-107); SODIUM 137.5 mmol/L (137-145)
[2017-07-13] MEDS: KETOROLAC TROMETHAMINE INJ/PF 30 MG/1 ML SDV IV PRN (02:21)
[2017-07-13] MEDS: NORMAL SALINE 1000 ML 1,000 ML IV SCH (02:23)
[2017-07-13] MEDS: HYDROMORPHONE HCL INJ/PF 2 MG/ML AMPULE IV PRN ×4 (04:23→18:20)
[2017-07-13 04:50] LABS: ABSOLUTE BASOPHILS # (AUTO) 0.1 10^3/uL (0.0-0.2); ABSOLUTE EOSINOPHILS # (AUTO) 0.1 10^3/uL (0.0-0.6); ABSOLUTE LYMPHOCYTES (AUTO) 2.1 10^3/uL (0.5-4.7); ABSOLUTE MONOCYTES (AUTO) 0.6 10^3/uL (0.1-1.4); ABSOLUTE NEUT (AUTO) 11.2 10^3/uL (1.7-8.2); BASOPHILS % (AUTO) 0.7 % (0-2); EOSINOPHILS % (AUTO) 0.4 % (0-6); HEMOGLOBIN 13.9 g/dL (13.5-17.0); LYMPHOCYTES % (AUTO) 14.7 % (13-45); MEAN CORPUSCULAR HEMOGLOBIN 31.6 pg (27.0-33.4); MEAN CORPUSCULAR HGB CONC 35.5 g/dL (32.0-36.0); MEAN CORPUSCULAR VOLUME 89 fl (80-97); MONOCYTES % (AUTO) 4.5 % (3-13); PLATELET COUNT 184 10^3/uL (150-450); RED BLOOD COUNT 4.38 10^6/uL (4.35-5.55); RED CELL DISTRIBUTION WIDTH 13.2 % (11.5-14.0); SEGMENTED NEUTROPHILS % (AUTO) 79.7 % (42-78); TOTAL CELLS COUNTED % (AUTO) 100 %; WHITE BLOOD COUNT 14.1 10^3/uL (4.0-10.5)
[2017-07-13] MEDS: HEPARIN SOD (PORCINE) 5,000 UNIT/ML 1 ML SYRINGE SUBCUT SCH ×3 (05:11→22:35)
[2017-07-13] MEDS: NORMAL SALINE 1000 ML 1,000 ML IV PRN (06:30)
[2017-07-13 07:11] LABS: ANION GAP 12 (5-19)
[2017-07-13 07:39] LABS: DIRECT LDL < 30 mg/dL (<100)
[2017-07-13 07:43] LABS: BLOOD UREA NITROGEN 7 mg/dL (7-20); CALCIUM 8.6 mg/dL (8.4-10.2); CARBON DIOXIDE 20 mmol/L (22-30); CHLORIDE 107 mmol/L (98-107); GLUCOSE 194 mg/dL (75-110); POTASSIUM 3.9 mmol/L (3.6-5.0)
[2017-07-13 07:44] LABS: CHOLESTEROL 253.76 mg/dL (0-200); SODIUM 138.9 mmol/L (137-145); TRIGLYCERIDES 2467 mg/dL (<150)
--- NOTE | 2017-07-13 08:20 | RADIOLOGY REPORT (SQ) ---
EXAM DESCRIPTION: CHEST PA/LAT COMPLETED DATE/TIME: 07/12/2017 10:05 pm REASON FOR STUDY: fever COMPARISON: 07/11/2017 EXAM PARAMETERS: NUMBER OF VIEWS: two views TECHNIQUE: Digital Frontal and Lateral radiographic views of the chest acquired. RADIATION DOSE: NA LIMITATIONS: none FINDINGS: LUNGS AND PLEURA: No opacities, masses or pneumothorax. No pleural effusion. MEDIASTINUM AND HILAR STRUCTURES: No masses or contour abnormalities. HEART AND VASCULAR STRUCTURES: Heart normal size. No evidence for failure. BONES: No acute findings. HARDWARE: None in the chest. OTHER: No other significant finding. IMPRESSION: NO SIGNIFICANT RADIOGRAPHIC FINDING IN THE CHEST. TECHNICAL DOCUMENTATION: JOB ID: [id number] [employer]- All Rights Reserved
[2017-07-13] MEDS: FENOFIBRATE NANOCRYSTALLIZED 145 MG TABLET PO SCH (10:02)
[2017-07-13] MEDS ORDERED: INSULIN LISPRO 100 UNIT/ML 3 ML VIAL SUBCUT SCH (11:00)
[2017-07-13] MEDS: INSULIN DETEMIR 100 UNIT/ML 3 ML PEN SUBCUT SCH ×2 (11:06→22:35)
[2017-07-13] MEDS: ONDANSETRON HCL INJ/PF 4 MG/2 ML SDV IV PRN (12:41)
[2017-07-13 13:16] LABS: ANION GAP 13 (5-19); BLOOD UREA NITROGEN 6 mg/dL (7-20); CARBON DIOXIDE 20 mmol/L (22-30); CHLORIDE 105 mmol/L (98-107); GLUCOSE 239 mg/dL (75-110)
[2017-07-13 13:29] LABS: POTASSIUM 3.7 mmol/L (3.6-5.0)
[2017-07-13 13:30] LABS: CALCIUM 8.6 mg/dL (8.4-10.2)
--- NOTE | 2017-07-13 13:47 | PDOC PROGRESS REPORT ---
Subjective Progress Note for:: 07/13/17 Subjective:: Still with abdominal/back pains but slightly lesstoday. Still with N/V Reason For Visit: DKA PANCREATITIS Physical Exam Vital Signs: Temp Pulse Resp BP Pulse Ox 99.4 F 110 H 22 H 135/81 H 98 07/13/17 11:46 07/13/17 11:46 07/13/17 11:46 07/13/17 11:46 07/13/17 11:46 Intake & Output 07/12/17 07/13/17 07/14/17 06:59 06:59 06:59 Intake Total 2575 480 Output Total 600 Balance 1975 480 Weight 103.8 kg Exam: Abd + tenderness upper abd and left back Results Laboratory Results: 07/13/17 04:00 07/13/17 12:50 07/12/17 07/12/17 07/12/17 14:48 18:11 20:50 WBC RBC Hgb Hct MCV MCH MCHC RDW Plt Count Seg Neutrophils % Lymphocytes % Monocytes % Eosinophils % Basophils % Absolute Neutrophils Absolute Lymphocytes Absolute Monocytes Absolute Eosinophils Absolute Basophils Sodium 137.3 137.7 Potassium 4.1 4.2 Chloride 106 104 Carbon Dioxide 17 L 19 L Anion Gap 14 15 BUN 6 L 7 Creatinine 0.66 0.72 Est GFR ( Amer) > 60 > 60 Est GFR (Non-Af Amer) > 60 > 60 Glucose 199 H 192 H Lactic Acid Calcium 8.7 9.1 Triglycerides Cholesterol LDL Cholesterol Direct VLDL Cholesterol HDL Cholesterol Urine Color YELLOW Urine Appearance SLIGHTLY-CLOUDY Urine pH 5.0 Ur Specific [place] 1.038 Urine Protein 30 H Urine Glucose (UA) 50 H Urine Ketones TRACE H Urine Blood SMALL H Urine Nitrite NEGATIVE Ur Leukocyte Esterase NEGATIVE Urine WBC (Auto) 2 Urine RBC (Auto) 1 07/12/17 07/12/17 07/13/17 21:23 21:32 04:00 WBC RBC Hgb Hct MCV MCH MCHC RDW Plt Count Seg Neutrophils % Lymphocytes % Monocytes % Eosinophils % Basophils % Absolute Neutrophils Absolute Lymphocytes Absolute Monocytes Absolute Eosinophils Absolute Basophils Sodium 137.5 Cancelled Potassium 3.8 Cancelled Chloride 105 Cancelled Carbon Dioxide 20 L Cancelled Anion Gap 13 Cancelled BUN 7 Cancelled Creatinine 0.73 Cancelled Est GFR ( Amer) > 60 Cancelled Est GFR (Non-Af Amer) > 60 Cancelled Glucose 198 H Cancelled Lactic Acid 1.2 Calcium 8.8 Cancelled Triglycerides Cancelled Cholesterol Cancelled LDL Cholesterol Direct Cancelled VLDL Cholesterol Cancelled HDL Cholesterol Cancelled Urine Color Urine Appearance Urine pH Ur Specific [place] Urine Protein Urine Glucose (UA) Urine Ketones Urine Blood Urine Nitrite Ur Leukocyte Esterase Urine WBC (Auto) Urine RBC (Auto) 07/13/17 07/13/17 07/13/17 04:00 05:47 12:50 WBC 14.1 H RBC 4.38 Hgb 13.9 Hct 39.0 MCV 89 MCH 31.6 MCHC 35.5 RDW 13.2 Plt Count 184 Seg Neutrophils % 79.7 H Lymphocytes % 14.7 Monocytes % 4.5 Eosinophils % 0.4 Basophils % 0.7 Absolute Neutrophils 11.2 H Absolute Lymphocytes 2.1 Absolute Monocytes 0.6 Absolute Eosinophils 0.1 Absolute Basophils 0.1 Sodium 138.9 138.0 Potassium 3.9 3.7 Chloride 107 105 Carbon Dioxide 20 L 20 L Anion Gap 12 13 BUN 7 6 L Creatinine 0.75 0.71 Est GFR ( Amer) > 60 > 60 Est GFR (Non-Af Amer) > 60 > 60 Glucose 194 H 239 H Lactic Acid Calcium 8.6 8.6 Triglycerides 2467 H Cholesterol 253.76 H LDL Cholesterol Direct < 30 VLDL Cholesterol UNABLE TO CALCULATE HDL Cholesterol 23 L Urine Color Urine Appearance Urine pH Ur Specific [place] Urine Protein Urine Glucose (UA) Urine Ketones Urine Blood Urine Nitrite Ur Leukocyte Esterase Urine WBC (Auto) Urine RBC (Auto) Impressions: Abdomen Ultrasound 07/12/17 00:00 IMPRESSION: HEPATOMEGALY WITH DIFFUSE FATTY INFILTRATION OF THE LIVER. PANCREAS OBSCURED. OTHERWISE NORMAL RIGHT UPPER QUADRANT ULTRASOUND. Chest X-Ray 07/12/17 00:00 IMPRESSION: NO SIGNIFICANT RADIOGRAPHIC FINDING IN THE CHEST. Chest/Abdomen CTA 07/12/17 10:04 IMPRESSION: No CT angio evidence of thoracic or abdominal aortic dissection No acute pulmonary emboli There are early changes of pancreatitis surround the uncinate process of pancreas, with retroperitoneal fluid present. NORMAL CT OF THE ABDOMEN AND PELVIS WITH ORAL AND INTRAVENOUS CONTRAST. Abdomen/Pelvis CTA 07/12/17 10:08 IMPRESSION: No CT angio evidence of thoracic or abdominal aortic dissection No acute pulmonary emboli There are early changes of pancreatitis surround the uncinate process of pancreas, with retroperitoneal fluid present. NORMAL CT OF THE ABDOMEN AND PELVIS WITH ORAL AND INTRAVENOUS CONTRAST. Assessment & Plan - Diagnosis (2) Chest pain Qualifiers: Chest pain type: unspecified Qualified Code(s): R07.9 - Chest pain, unspecified Is this a current diagnosis for this admission?: Yes - Time Time Spent with patient: 15-24 minutes - Inpatient Certification Medical Necessity: Need Close Monitoring Due to Risk of Patient Decompensation, Need For IV Fluids, Need for Pain Control - Plan Summary Plan Summary: Continue bowel rest and hydration Medical tx for hyperlipidemia. Has normal gallbladder US but with fatty liver
--- NOTE | 2017-07-13 14:40 | PDOC PROGRESS REPORT ---
Subjective Progress Note for:: 07/13/17 Subjective:: Patient refers that the pain is better is around 3-4 in a scale from 1-10. Patient also will like to have some food since he is tired of ice chips. Otherwise no other complaints Reason For Visit: DKA PANCREATITIS Physical Exam Vital Signs: Temp Pulse Resp BP Pulse Ox 99.6 F 110 H 22 H 146/79 H 100 07/13/17 04:16 07/13/17 04:16 07/13/17 04:16 07/13/17 04:16 07/13/17 04:16 Intake & Output 07/12/17 07/13/17 07/14/17 06:59 06:59 06:59 Intake Total 2575 Output Total 600 Balance 1975 Weight 103.8 kg General appearance: PRESENT: no acute distress, cooperative, morbidly obese Head exam: PRESENT: atraumatic, normocephalic Eye exam: PRESENT: EOMI, PERRLA Mouth exam: PRESENT: moist, neck supple Neck exam: PRESENT: full ROM. ABSENT: JVD, tenderness Respiratory exam: PRESENT: clear to auscultation anastasia. ABSENT: crackles, rhonchi Cardiovascular exam: PRESENT: RRR. ABSENT: diastolic murmur, systolic murmur Vascular exam: PRESENT: normal capillary refill GI/Abdominal exam: PRESENT: normal bowel sounds, tenderness - Mild tenderness in epigastric area. ABSENT: distended, guarding Extremities exam: PRESENT: full ROM. ABSENT: joint swelling, pedal edema Neurological exam: PRESENT: alert, awake, oriented to person, oriented to place , oriented to time Psychiatric exam: PRESENT: appropriate affect, normal mood Results Laboratory Results: 07/13/17 04:00 07/12/17 07/12/17 07/12/17 14:48 18:11 20:50 WBC RBC Hgb Hct MCV MCH MCHC RDW Plt Count Seg Neutrophils % Lymphocytes % Monocytes % Eosinophils % Basophils % Absolute Neutrophils Absolute Lymphocytes Absolute Monocytes Absolute Eosinophils Absolute Basophils Sodium 137.3 137.7 Potassium 4.1 4.2 Chloride 106 104 Carbon Dioxide 17 L 19 L Anion Gap 14 15 BUN 6 L 7 Creatinine 0.66 0.72 Est GFR ( Amer) > 60 > 60 Est GFR (Non-Af Amer) > 60 > 60 Glucose 199 H 192 H Lactic Acid Calcium 8.7 9.1 Triglycerides Cholesterol LDL Cholesterol Direct VLDL Cholesterol HDL Cholesterol Urine Color YELLOW Urine Appearance SLIGHTLY-CLOUDY Urine pH 5.0 Ur Specific [place] 1.038 Urine Protein 30 H Urine Glucose (UA) 50 H Urine Ketones TRACE H Urine Blood SMALL H Urine Nitrite NEGATIVE Ur Leukocyte Esterase NEGATIVE Urine WBC (Auto) 2 Urine RBC (Auto) 1 07/12/17 07/12/17 07/13/17 21:23 21:32 04:00 WBC RBC Hgb Hct MCV MCH MCHC RDW Plt Count Seg Neutrophils % Lymphocytes % Monocytes % Eosinophils % Basophils % Absolute Neutrophils Absolute Lymphocytes Absolute Monocytes Absolute Eosinophils Absolute Basophils Sodium 137.5 Cancelled Potassium 3.8 Cancelled Chloride 105 Cancelled Carbon Dioxide 20 L Cancelled Anion Gap 13 Cancelled BUN 7 Cancelled Creatinine 0.73 Cancelled Est GFR ( Amer) > 60 Cancelled Est GFR (Non-Af Amer) > 60 Cancelled Glucose 198 H Cancelled Lactic Acid 1.2 Calcium 8.8 Cancelled Triglycerides Cancelled Cholesterol Cancelled LDL Cholesterol Direct Cancelled VLDL Cholesterol Cancelled HDL Cholesterol Cancelled Urine Color Urine Appearance Urine pH Ur Specific [place] Urine Protein Urine Glucose (UA) Urine Ketones Urine Blood Urine Nitrite Ur Leukocyte Esterase Urine WBC (Auto) Urine RBC (Auto) 07/13/17 04:00 WBC 14.1 H RBC 4.38 Hgb 13.9 Hct 39.0 MCV 89 MCH 31.6 MCHC 35.5 RDW 13.2 Plt Count 184 Seg Neutrophils % 79.7 H Lymphocytes % 14.7 Monocytes % 4.5 Eosinophils % 0.4 Basophils % 0.7 Absolute Neutrophils 11.2 H Absolute Lymphocytes 2.1 Absolute Monocytes 0.6 Absolute Eosinophils 0.1 Absolute Basophils 0.1 Sodium Potassium Chloride Carbon Dioxide Anion Gap BUN Creatinine Est GFR ( Amer) Est GFR (Non-Af Amer) Glucose Lactic Acid Calcium Triglycerides Cholesterol LDL Cholesterol Direct VLDL Cholesterol HDL Cholesterol Urine Color Urine Appearance Urine pH Ur Specific [place] Urine Protein Urine Glucose (UA) Urine Ketones Urine Blood Urine Nitrite Ur Leukocyte Esterase Urine WBC (Auto) Urine RBC (Auto) Impressions: Abdomen Ultrasound 07/12/17 00:00 IMPRESSION: HEPATOMEGALY WITH DIFFUSE FATTY INFILTRATION OF THE LIVER. PANCREAS OBSCURED. OTHERWISE NORMAL RIGHT UPPER QUADRANT ULTRASOUND. Chest/Abdomen CTA 07/12/17 10:04 IMPRESSION: No CT angio evidence of thoracic or abdominal aortic dissection No acute pulmonary emboli There are early changes of pancreatitis surround the uncinate process of pancreas, with retroperitoneal fluid present. NORMAL CT OF THE ABDOMEN AND PELVIS WITH ORAL AND INTRAVENOUS CONTRAST. Abdomen/Pelvis CTA 07/12/17 10:08 IMPRESSION: No CT angio evidence of thoracic or abdominal aortic dissection No acute pulmonary emboli There are early changes of pancreatitis surround the uncinate process of pancreas, with retroperitoneal fluid present. NORMAL CT OF THE ABDOMEN AND PELVIS WITH ORAL AND INTRAVENOUS CONTRAST. 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 Patient will be placed on TriCor and Lipitor patient had been informed need to follow-up with diet and lifestyle modification (3) High anion gap metabolic acidosis Is this a current diagnosis for this admission?: Yes Plan: Mild improvement (4) Pancreatitis Qualifiers: Chronicity: acute Pancreatitis type: other Is this a current diagnosis for this admission?: Yes Plan: This is secondary to hyper triglyceridemia. Will proceed to place patient on TriCor and aggressive management of diabetes. Will try clear liquids. Patient will also be placed on Protonix IV - Time Medications reviewed and adjusted accordingly: Yes Anticipated discharge: Home Within: within 72 hours - Inpatient Certification Based on my medical assessment, after consideration of the patient's comorbidities, presenting symptoms, or acuity I expect that the services needed warrant INPATIENT care.: Yes I certify that my determination is in accordance with my understanding of Medicare's requirements for reasonable and necessary INPATIENT services [42 CFR 412.3e].: Yes Medical Necessity: Need for Pain Control
[2017-07-13 16:31] LABS: ANION GAP 9 (5-19); BLOOD UREA NITROGEN 7 mg/dL (7-20); CALCIUM 8.7 mg/dL (8.4-10.2); CARBON DIOXIDE 24 mmol/L (22-30); CHLORIDE 104 mmol/L (98-107); GLUCOSE 227 mg/dL (75-110); POTASSIUM 3.5 mmol/L (3.6-5.0); SODIUM 136.6 mmol/L (137-145)
[2017-07-13] MEDS: INSULIN LISPRO 100 UNIT/ML 3 ML VIAL SUBCUT SCH (17:02)
[2017-07-13 19:55] LABS: ANION GAP 12 (5-19); BLOOD UREA NITROGEN 6 mg/dL (7-20); CALCIUM 8.9 mg/dL (8.4-10.2); CARBON DIOXIDE 23 mmol/L (22-30); CHLORIDE 102 mmol/L (98-107); GLUCOSE 179 mg/dL (75-110); POTASSIUM 3.6 mmol/L (3.6-5.0); SODIUM 137.3 mmol/L (137-145)
[2017-07-13] MEDS ORDERED: KETOROLAC TROMETHAMINE INJ/PF 30 MG/1 ML SDV IV ONE (20:00)
[2017-07-13] MEDS: ATORVASTATIN CALCIUM 80 MG TABLET PO SCH (22:34)
[2017-07-13] MEDS: INSULIN LISPRO 100 UNIT/ML 3 ML VIAL SUBCUT PRN (22:35)
[2017-07-13] MEDS: PANTOPRAZOLE SODIUM 40 MG VIAL IV SCH (22:35)
[2017-07-14 00:01] LABS: ANION GAP 7 (5-19); BLOOD UREA NITROGEN 8 mg/dL (7-20); CALCIUM 8.7 mg/dL (8.4-10.2); CARBON DIOXIDE 26 mmol/L (22-30); CHLORIDE 104 mmol/L (98-107); GLUCOSE 178 mg/dL (75-110); POTASSIUM 3.6 mmol/L (3.6-5.0); SODIUM 137.2 mmol/L (137-145)
[2017-07-14] MEDS ORDERED: ERTAPENEM SODIUM INJ 1 GM VIAL IV PRN (00:09)
[2017-07-14] MEDS ORDERED: ERTAPENEM SODIUM 1 GM in NORMAL SALINE 50 ML IV ONE (00:30)
[2017-07-14] MEDS: NORMAL SALINE 1000 ML 1,000 ML IV PRN (01:43)
[2017-07-14] MEDS: HYDROMORPHONE HCL INJ/PF 2 MG/ML AMPULE IV PRN ×4 (01:43→17:54)
[2017-07-14] MEDS ORDERED: ERTAPENEM SODIUM INJ 1 GM VIAL ONE (01:48)
[2017-07-14 03:34] LABS: ANION GAP 10 (5-19); BLOOD UREA NITROGEN 8 mg/dL (7-20); CALCIUM 8.6 mg/dL (8.4-10.2); CARBON DIOXIDE 26 mmol/L (22-30); CHLORIDE 104 mmol/L (98-107); GLUCOSE 195 mg/dL (75-110); POTASSIUM 3.4 mmol/L (3.6-5.0); SODIUM 140.4 mmol/L (137-145)
[2017-07-14] MEDS: HEPARIN SOD (PORCINE) 5,000 UNIT/ML 1 ML SYRINGE SUBCUT SCH ×3 (05:31→23:16)
[2017-07-14] MEDS: ONDANSETRON HCL INJ/PF 4 MG/2 ML SDV IV PRN (06:01)
[2017-07-14] MEDS ORDERED: POTASSI CL 20 MEQ/D5-1/2NS 1L 1,000 ML IV PRN (07:29)
[2017-07-14 08:07] LABS: ABSOLUTE EOSINOPHILS # (AUTO) 0.1 10^3/uL (0.0-0.6); ABSOLUTE LYMPHOCYTES (AUTO) 1.6 10^3/uL (0.5-4.7); ABSOLUTE NEUT (AUTO) 11.8 10^3/uL (1.7-8.2); BASOPHILS % (AUTO) 0.2 % (0-2); EOSINOPHILS % (AUTO) 0.5 % (0-6); HEMATOCRIT 37.4 % (37.9-51.0); HEMOGLOBIN 12.5 g/dL (13.5-17.0); LYMPHOCYTES % (AUTO) 11.1 % (13-45); MEAN CORPUSCULAR HEMOGLOBIN 30.1 pg (27.0-33.4); MEAN CORPUSCULAR HGB CONC 33.5 g/dL (32.0-36.0); MEAN CORPUSCULAR VOLUME 90 fl (80-97); PLATELET COUNT 150 10^3/uL (150-450); RED BLOOD COUNT 4.16 10^6/uL (4.35-5.55); RED CELL DISTRIBUTION WIDTH 13.4 % (11.5-14.0); SEGMENTED NEUTROPHILS % (AUTO) 81.2 % (42-78); TOTAL CELLS COUNTED % (AUTO) 100 %; WHITE BLOOD COUNT 14.6 10^3/uL (4.0-10.5)
[2017-07-14 08:29] LABS: ALANINE AMINOTRANSFERASE 64 U/L (21-72); ALBUMIN 3.3 g/dL (3.5-5.0); ALKALINE PHOSPHATASE 83 U/L (38-126); ANION GAP 10 (5-19); ASPARTATE AMINO TRANSFERASE 40 U/L (17-59); BILIRUBIN,DIRECT 0.3 mg/dL (0.0-0.4); BILIRUBIN,TOTAL 0.6 mg/dL (0.2-1.3); BLOOD UREA NITROGEN 8 mg/dL (7-20); CALCIUM 8.8 mg/dL (8.4-10.2); CARBON DIOXIDE 25 mmol/L (22-30); CHLORIDE 104 mmol/L (98-107); GLUCOSE 219 mg/dL (75-110); POTASSIUM 3.4 mmol/L (3.6-5.0); SODIUM 138.8 mmol/L (137-145); TOTAL PROTEIN 6.2 g/dL (6.3-8.2)
[2017-07-14] MEDS: INSULIN LISPRO 100 UNIT/ML 3 ML VIAL SUBCUT SCH ×3 (08:29→16:04)
[2017-07-14 08:32] LABS: LIPASE 45.5 U/L (23-300); MAGNESIUM 1.6 mg/dL (1.6-2.3)
[2017-07-14] MEDS: PANTOPRAZOLE SODIUM 40 MG VIAL IV SCH ×2 (09:20→23:18)
[2017-07-14] MEDS: FENOFIBRATE NANOCRYSTALLIZED 145 MG TABLET PO SCH (09:20)
[2017-07-14] MEDS: INSULIN DETEMIR 100 UNIT/ML 3 ML PEN SUBCUT SCH ×2 (09:20→23:16)
[2017-07-14] MEDS ORDERED: ERTAPENEM SODIUM 1 GM in NORMAL SALINE 50 ML IV SCH (10:00)
--- NOTE | 2017-07-14 10:26 | RADIOLOGY REPORT (SQ) ---
EXAM DESCRIPTION: CT ABD/PELVIS WITH IV ONLY COMPLETED DATE/TIME: 07/14/2017 9:03 am REASON FOR STUDY: pancreatitis/fever COMPARISON: 07/12/2017 TECHNIQUE: CT scan of the abdomen and pelvis performed using helical scanning technique with dynamic intravenous contrast injection. No oral contrast. Images reviewed with lung, soft tissue, and bone windows. Reconstructed coronal and sagittal MPR images reviewed. Delayed images for evaluation of the urinary system also acquired. All images stored on PACS. All CT scanners at this facility use dose modulation, iterative reconstruction, and/or weight based d osing when appropriate to reduce radiation dose to as low as reasonably achievable (ALARA). [facility]: Dose Right [facility]: CareDose [facility]: Dose Right [facility]: Teradose 4D [facility]: JourneyPure CONTRAST TYPE AND DOSE: contrast/concentration: Isovue 370.00 mg/ml; Total Contrast Delivered: 100.0 ml; Total Saline Delivered: 77.4 ml RENAL FUNCTION: GFR > 60. RADIATION DOSE: CT Rad equipment meets quality standard of care and radiation dose reduction techniq ues were employed. CTDIvol: 18.9 - 20.4 mGy. DLP: 2332 mGy-cm.. LIMITATIONS: None. FINDINGS: LOWER CHEST: Stable minimal subsegmental atelectasis/scarring left lower lobe. LIVER: Mild diffuse hepatic steatosis. . No masses. No dilated ducts. SPLEEN: Normal size. No focal lesions. PANCREAS: No masses. No significant calcifications. Increased peripancreatic inflammatory change com patible with pancreatitis. No pseudocyst. . Pancreatic duct not dilated. GALLBLADDER: No identified stones by CT criteria. Mild pericholecystic fluid which is likely reactiv e to pancreatitis. ADRENAL GLANDS: No significant masses or asymmetry. RIGHT KIDNEY AND URETER: No solid masses. No significant calcifications. No hydronephrosis or hyd roureter. LEFT KIDNEY AND URETER: No solid masses. No significant calcifications. No hydronephrosis or hydr oureter. AORTA AND VESSELS: No aneurysm. No dissection. Renal arteries, SMA, celiac without stenosis. RETROPERITONEUM: No retroperitoneal adenopathy, hemorrhage or masses. BOWEL AND PERITONEAL CAVITY: Inflammatory change involving the duodenum which is likely reactive to p ancreatitis. No masses or additional inflammatory changes. Mild free fluid or peritoneal masses. APPENDIX: Normal. PELVIS: No mass. No free fluid. Normal bladder. ABDOMINAL WALL: No masses. No hernias. BONES: Bilateral sacroiliitis. No fracture or suspicious osseous lesion. OTHER: No other significant finding. IMPRESSION: INCREASED PERIPANCREATIC INFLAMMATORY CHANGE WITH REACTIVE INFLAMMATION OF THE DUODENUM AND GALLBLADDER COMPATIBLE WITH ACUTE PANCREATITIS. NO COMPLICATION OF PANCREATITIS IDENTIFIED SUCH NECROSIS, VENOUS THROMBOSIS OR PSEUDOCYST FORMATION. ADDITIONAL NOTE MADE OF BILATERAL SACROILIITIS WHICH IS NONSPECIFIC. CORRELATE WITH CLINICAL HISTORY / SEROLOGY STUDIES. HEPATIC STEATOSIS. TECHNICAL DOCUMENTATION: JOB ID: [id number] Quality ID # [id number]: Final reports with documentation of one or more dose reduction techniques (e.g., Au tomated exposure control, adjustment of the mA and/or kV according to patient size, use of iterative reconstruction technique) 2010 [employer] All Rights Reserved
[2017-07-14 12:28] LABS: ANION GAP 9 (5-19); BLOOD UREA NITROGEN 7 mg/dL (7-20); CARBON DIOXIDE 24 mmol/L (22-30); CHLORIDE 104 mmol/L (98-107); GLUCOSE 165 mg/dL (75-110); POTASSIUM 3.6 mmol/L (3.6-5.0); SODIUM 137.4 mmol/L (137-145)
--- NOTE | 2017-07-14 12:37 | EKG REPORT ---
SEVERITY:- ABNORMAL ECG - SINUS TACHYCARDIA LEFT ANTERIOR FASCICULAR BLOCK CONSIDER LEFT VENTRICULAR HYPERTROPHY ST ELEV, PROBABLE NORMAL EARLY REPOL PATTERN : Confirmed by: Iva Mendoza MD 14-Jul-2017 12:36:56
[2017-07-14] MEDS ORDERED: NORMAL SALINE 1000 ML 1,000 ML IV PRN (13:38)
--- NOTE | 2017-07-14 13:51 | PDOC PROGRESS REPORT ---
Subjective Progress Note for:: 07/14/17 Subjective:: Patient relates that the pain is fine as long as he does not move much and goes to the back. Nurse reported fever. Reason For Visit: DKA PANCREATITIS Physical Exam Vital Signs: Temp Pulse Resp BP Pulse Ox 101.1 F H 110 H 20 130/68 H 98 07/14/17 11:55 07/14/17 11:55 07/14/17 11:55 07/14/17 11:55 07/14/17 11:55 Intake & Output 07/13/17 07/14/17 07/15/17 06:59 06:59 06:59 Intake Total 2575 6000 570 Output Total 600 650 Balance 1975 5350 570 Weight 103.8 kg 103.8 kg General appearance: PRESENT: no acute distress, cooperative, obese Head exam: PRESENT: atraumatic, normocephalic Eye exam: PRESENT: EOMI, PERRLA Ear exam: PRESENT: normal external ear exam Mouth exam: PRESENT: moist Neck exam: PRESENT: full ROM. ABSENT: JVD, tenderness Respiratory exam: PRESENT: clear to auscultation anastasia Cardiovascular exam: PRESENT: RRR. ABSENT: diastolic murmur, systolic murmur Vascular exam: PRESENT: normal capillary refill GI/Abdominal exam: PRESENT: normal bowel sounds, soft, tenderness - To left upper quadrant. ABSENT: ascites, distended Extremities exam: PRESENT: full ROM. ABSENT: joint swelling, pedal edema Musculoskeletal exam: PRESENT: ambulatory Neurological exam: PRESENT: alert, awake, oriented to person, oriented to place , oriented to time Psychiatric exam: PRESENT: appropriate affect, normal mood Skin exam: PRESENT: normal color Results Laboratory Results: 07/14/17 07:22 07/14/17 11:35 07/13/17 07/13/17 07/13/17 15:55 19:30 23:00 WBC RBC Hgb Hct MCV MCH MCHC RDW Plt Count Seg Neutrophils % Lymphocytes % Monocytes % Eosinophils % Basophils % Absolute Neutrophils Absolute Lymphocytes Absolute Monocytes Absolute Eosinophils Absolute Basophils Sodium 136.6 L 137.3 137.2 Potassium 3.5 L 3.6 3.6 Chloride 104 102 104 Carbon Dioxide 24 23 26 Anion Gap 9 12 7 BUN 7 6 L 8 Creatinine 0.67 0.71 0.78 Est GFR ( Amer) > 60 > 60 > 60 Est GFR (Non-Af Amer) > 60 > 60 > 60 Glucose 227 H 179 H 178 H Calcium 8.7 8.9 8.7 Magnesium Total Bilirubin AST ALT Alkaline Phosphatase Total Protein Albumin Triglycerides Lipase 07/14/17 07/14/17 07/14/17 02:58 07:22 07:22 WBC 14.6 H RBC 4.16 L Hgb 12.5 L Hct 37.4 L MCV 90 MCH 30.1 MCHC 33.5 RDW 13.4 Plt Count 150 Seg Neutrophils % 81.2 H Lymphocytes % 11.1 L Monocytes % 7.0 Eosinophils % 0.5 Basophils % 0.2 Absolute Neutrophils 11.8 H Absolute Lymphocytes 1.6 Absolute Monocytes 1.0 Absolute Eosinophils 0.1 Absolute Basophils 0.0 Sodium 140.4 Potassium 3.4 L Chloride 104 Carbon Dioxide 26 Anion Gap 10 BUN 8 Creatinine 0.80 Est GFR ( Amer) > 60 Est GFR (Non-Af Amer) > 60 Glucose 195 H Calcium 8.6 Magnesium 1.6 Total Bilirubin AST ALT Alkaline Phosphatase Total Protein Albumin Triglycerides 932 H Lipase 45.5 07/14/17 07/14/17 07:22 11:35 WBC RBC Hgb Hct MCV MCH MCHC RDW Plt Count Seg Neutrophils % Lymphocytes % Monocytes % Eosinophils % Basophils % Absolute Neutrophils Absolute Lymphocytes Absolute Monocytes Absolute Eosinophils Absolute Basophils Sodium 138.8 137.4 Potassium 3.4 L 3.6 Chloride 104 104 Carbon Dioxide 25 24 Anion Gap 10 9 BUN 8 7 Creatinine 0.77 0.76 Est GFR ( Amer) > 60 > 60 Est GFR (Non-Af Amer) > 60 > 60 Glucose 219 H 165 H Calcium 8.8 9.0 Magnesium Total Bilirubin 0.6 AST 40 ALT 64 Alkaline Phosphatase 83 Total Protein 6.2 L Albumin 3.3 L Triglycerides Lipase 07/12/17 20:50 Clean Catch Midstream Urine Culture - Final NO GROWTH 2 DAYS Impressions: Abdomen Ultrasound 07/12/17 00:00 IMPRESSION: HEPATOMEGALY WITH DIFFUSE FATTY INFILTRATION OF THE LIVER. PANCREAS OBSCURED. OTHERWISE NORMAL RIGHT UPPER QUADRANT ULTRASOUND. Chest X-Ray 07/12/17 00:00 IMPRESSION: NO SIGNIFICANT RADIOGRAPHIC FINDING IN THE CHEST. Chest/Abdomen CTA 07/12/17 10:04 IMPRESSION: No CT angio evidence of thoracic or abdominal aortic dissection No acute pulmonary emboli There are early changes of pancreatitis surround the uncinate process of pancreas, with retroperitoneal fluid present. NORMAL CT OF THE ABDOMEN AND PELVIS WITH ORAL AND INTRAVENOUS CONTRAST. Abdomen/Pelvis CTA 07/12/17 10:08 IMPRESSION: No CT angio evidence of thoracic or abdominal aortic dissection No acute pulmonary emboli There are early changes of pancreatitis surround the uncinate process of pancreas, with retroperitoneal fluid present. NORMAL CT OF THE ABDOMEN AND PELVIS WITH ORAL AND INTRAVENOUS CONTRAST. Abdomen/Pelvis CT 07/14/17 00:00 IMPRESSION: INCREASED PERIPANCREATIC INFLAMMATORY CHANGE WITH REACTIVE INFLAMMATION OF THE DUODENUM AND GALLBLADDER COMPATIBLE WITH ACUTE PANCREATITIS. NO COMPLICATION OF PANCREATITIS IDENTIFIED SUCH NECROSIS, VENOUS THROMBOSIS OR PSEUDOCYST FORMATION. ADDITIONAL NOTE MADE OF BILATERAL SACROILIITIS WHICH IS NONSPECIFIC. CORRELATE WITH CLINICAL HISTORY/ SEROLOGY STUDIES. HEPATIC STEATOSIS. 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 To place on D5 1/2 normal saline plus KCl since will have to continue n.p.o. except for meds (2) Elevated triglycerides with high cholesterol Is this a current diagnosis for this admission?: Yes Plan: Culprit of presentation. Continue TriCor and Lipitor. Patient has been educated regarding lifestyle modifications (3) High anion gap metabolic acidosis Is this a current diagnosis for this admission?: Yes Plan: Mild improvement (4) Pancreatitis Qualifiers: Chronicity: acute Pancreatitis type: other Is this a current diagnosis for this admission?: Yes Plan: This is secondary to hyper triglyceridemia. Patient developed fever overnight and repeated CT scan which shows persistent pancreatitis possibly worsening. Concerned that fever may relate to pneumonic process. Will increase fluids. Also to continue Protonix IV and pain management (5) Fever Qualifiers: Fever type: unspecified Qualified Code(s): R50.9 - Fever, unspecified Is this a current diagnosis for this admission?: Yes Plan: May relate to pneumonic process. CT scan of the abdomen shows atelectasis in left lower lobe. Will place patient on incentive spirometry and will order a chest x-ray for better definition trying to avoid exposing patient to excessive radiation such as the one CT scan. Discontinue ertapenem and instead placed him on Levaquin - Time Time Spent with patient: 15-24 minutes Medications reviewed and adjusted accordingly: Yes Anticipated discharge: Home Within: within 72 hours - Inpatient Certification Based on my medical assessment, after consideration of the patient's comorbidities, presenting symptoms, or acuity I expect that the services needed warrant INPATIENT care.: Yes I certify that my determination is in accordance with my understanding of Medicare's requirements for reasonable and necessary INPATIENT services [42 CFR 412.3e].: Yes Medical Necessity: Need For IV Fluids, Need for Pain Control
[2017-07-14] MEDS ORDERED: LEVOFLOXACIN 750 MG TABLET PO SCH (14:00)
[2017-07-14] MEDS ORDERED: LEVOFLOXACIN 500 MG/D5W RTU 500 MG/100 ML RTUPB IV SCH ×2 (14:00→15:00)
--- NOTE | 2017-07-14 14:41 | PDOC PROGRESS REPORT ---
Subjective Progress Note for:: 07/14/17 Subjective:: Still with abdominal pains but less compared to yesterday. + Flatus and tolerating clears. Continue med mx. Reason For Visit: DKA PANCREATITIS Physical Exam Vital Signs: Temp Pulse Resp BP Pulse Ox 101.1 F H 108 H 20 130/68 H 98 07/14/17 11:55 07/14/17 14:00 07/14/17 11:55 07/14/17 11:55 07/14/17 11:55 Intake & Output 07/13/17 07/14/17 07/15/17 06:59 06:59 06:59 Intake Total 2575 6000 570 Output Total 600 650 Balance 1975 5350 570 Weight 103.8 kg 103.8 kg Results Laboratory Results: 07/14/17 07:22 07/14/17 11:35 07/13/17 07/13/17 07/13/17 15:55 19:30 23:00 WBC RBC Hgb Hct MCV MCH MCHC RDW Plt Count Seg Neutrophils % Lymphocytes % Monocytes % Eosinophils % Basophils % Absolute Neutrophils Absolute Lymphocytes Absolute Monocytes Absolute Eosinophils Absolute Basophils Sodium 136.6 L 137.3 137.2 Potassium 3.5 L 3.6 3.6 Chloride 104 102 104 Carbon Dioxide 24 23 26 Anion Gap 9 12 7 BUN 7 6 L 8 Creatinine 0.67 0.71 0.78 Est GFR ( Amer) > 60 > 60 > 60 Est GFR (Non-Af Amer) > 60 > 60 > 60 Glucose 227 H 179 H 178 H Calcium 8.7 8.9 8.7 Magnesium Total Bilirubin AST ALT Alkaline Phosphatase Total Protein Albumin Triglycerides Lipase 07/14/17 07/14/17 07/14/17 02:58 07:22 07:22 WBC 14.6 H RBC 4.16 L Hgb 12.5 L Hct 37.4 L MCV 90 MCH 30.1 MCHC 33.5 RDW 13.4 Plt Count 150 Seg Neutrophils % 81.2 H Lymphocytes % 11.1 L Monocytes % 7.0 Eosinophils % 0.5 Basophils % 0.2 Absolute Neutrophils 11.8 H Absolute Lymphocytes 1.6 Absolute Monocytes 1.0 Absolute Eosinophils 0.1 Absolute Basophils 0.0 Sodium 140.4 Potassium 3.4 L Chloride 104 Carbon Dioxide 26 Anion Gap 10 BUN 8 Creatinine 0.80 Est GFR ( Amer) > 60 Est GFR (Non-Af Amer) > 60 Glucose 195 H Calcium 8.6 Magnesium 1.6 Total Bilirubin AST ALT Alkaline Phosphatase Total Protein Albumin Triglycerides 932 H Lipase 45.5 07/14/17 07/14/17 07:22 11:35 WBC RBC Hgb Hct MCV MCH MCHC RDW Plt Count Seg Neutrophils % Lymphocytes % Monocytes % Eosinophils % Basophils % Absolute Neutrophils Absolute Lymphocytes Absolute Monocytes Absolute Eosinophils Absolute Basophils Sodium 138.8 137.4 Potassium 3.4 L 3.6 Chloride 104 104 Carbon Dioxide 25 24 Anion Gap 10 9 BUN 8 7 Creatinine 0.77 0.76 Est GFR ( Amer) > 60 > 60 Est GFR (Non-Af Amer) > 60 > 60 Glucose 219 H 165 H Calcium 8.8 9.0 Magnesium Total Bilirubin 0.6 AST 40 ALT 64 Alkaline Phosphatase 83 Total Protein 6.2 L Albumin 3.3 L Triglycerides Lipase 07/12/17 20:50 Clean Catch Midstream Urine Culture - Final NO GROWTH 2 DAYS Impressions: Abdomen Ultrasound 07/12/17 00:00 IMPRESSION: HEPATOMEGALY WITH DIFFUSE FATTY INFILTRATION OF THE LIVER. PANCREAS OBSCURED. OTHERWISE NORMAL RIGHT UPPER QUADRANT ULTRASOUND. Chest X-Ray 07/12/17 00:00 IMPRESSION: NO SIGNIFICANT RADIOGRAPHIC FINDING IN THE CHEST. Chest/Abdomen CTA 07/12/17 10:04 IMPRESSION: No CT angio evidence of thoracic or abdominal aortic dissection No acute pulmonary emboli There are early changes of pancreatitis surround the uncinate process of pancreas, with retroperitoneal fluid present. NORMAL CT OF THE ABDOMEN AND PELVIS WITH ORAL AND INTRAVENOUS CONTRAST. Abdomen/Pelvis CTA 07/12/17 10:08 IMPRESSION: No CT angio evidence of thoracic or abdominal aortic dissection No acute pulmonary emboli There are early changes of pancreatitis surround the uncinate process of pancreas, with retroperitoneal fluid present. NORMAL CT OF THE ABDOMEN AND PELVIS WITH ORAL AND INTRAVENOUS CONTRAST. Abdomen/Pelvis CT 07/14/17 00:00 IMPRESSION: INCREASED PERIPANCREATIC INFLAMMATORY CHANGE WITH REACTIVE INFLAMMATION OF THE DUODENUM AND GALLBLADDER COMPATIBLE WITH ACUTE PANCREATITIS. NO COMPLICATION OF PANCREATITIS IDENTIFIED SUCH NECROSIS, VENOUS THROMBOSIS OR PSEUDOCYST FORMATION. ADDITIONAL NOTE MADE OF BILATERAL SACROILIITIS WHICH IS NONSPECIFIC. CORRELATE WITH CLINICAL HISTORY/ SEROLOGY STUDIES. HEPATIC STEATOSIS. Assessment & Plan - Diagnosis (1) Elevated triglycerides with high cholesterol Is this a current diagnosis for this admission?: Yes (2) Chest pain Qualifiers: Chest pain type: unspecified Qualified Code(s): R07.9 - Chest pain, unspecified Is this a current diagnosis for this admission?: Yes
[2017-07-14] MEDS: POTASSI CL 20 MEQ/D5-1/2NS 1L 1,000 ML IV PRN (14:58)
--- NOTE | 2017-07-14 15:39 | RADIOLOGY REPORT (SQ) ---
EXAM DESCRIPTION: CHEST PA/LAT COMPLETED DATE/TIME: 07/14/2017 3:30 pm REASON FOR STUDY: fever/ concerned about pneumonia COMPARISON: 07/12/2017 EXAM PARAMETERS: NUMBER OF VIEWS: two views TECHNIQUE: Digital Frontal and Lateral radiographic views of the chest acquired. RADIATION DOSE: NA LIMITATIONS: none FINDINGS: LUNGS AND PLEURA: Stable discoid atelectasis/ scarring in the lung bases. No consolidatio n, pleural effusion, or pneumothorax. MEDIASTINUM AND HILAR STRUCTURES: No masses or contour abnormalities. HEART AND VASCULAR STRUCTURES: Heart stable in size. No evidence for failure. BONES: No acute findings. HARDWARE: None in the chest. OTHER: No other significant finding. IMPRESSION: NO ACUTE CARDIOPULMONARY PROCESS. NO SIGNIFICANT CHANGE FROM PRIOR STUDY. TECHNICAL DOCUMENTATION: JOB ID: [id number] [employer]- All Rights Reserved
[2017-07-14] MEDS: IBUPROFEN 600 MG TABLET PO PRN (17:03)
[2017-07-14] MEDS: ATORVASTATIN CALCIUM 80 MG TABLET PO SCH (23:18)
[2017-07-15] MEDS: HYDROMORPHONE HCL INJ/PF 2 MG/ML AMPULE IV PRN ×4 (03:01→17:26)
[2017-07-15 04:52] LABS: ABSOLUTE BASOPHILS # (AUTO) 0.1 10^3/uL (0.0-0.2); ABSOLUTE EOSINOPHILS # (AUTO) 0.2 10^3/uL (0.0-0.6); ABSOLUTE LYMPHOCYTES (AUTO) 2.2 10^3/uL (0.5-4.7); ABSOLUTE NEUT (AUTO) 10.8 10^3/uL (1.7-8.2); BASOPHILS % (AUTO) 0.4 % (0-2); EOSINOPHILS % (AUTO) 1.3 % (0-6); HEMATOCRIT 36.7 % (37.9-51.0); HEMOGLOBIN 12.3 g/dL (13.5-17.0); LYMPHOCYTES % (AUTO) 15.4 % (13-45); MEAN CORPUSCULAR HEMOGLOBIN 30.3 pg (27.0-33.4); MEAN CORPUSCULAR HGB CONC 33.7 g/dL (32.0-36.0); MEAN CORPUSCULAR VOLUME 90 fl (80-97); PLATELET COUNT 165 10^3/uL (150-450); RED BLOOD COUNT 4.07 10^6/uL (4.35-5.55); RED CELL DISTRIBUTION WIDTH 13.7 % (11.5-14.0); SEGMENTED NEUTROPHILS % (AUTO) 75.9 % (42-78); TOTAL CELLS COUNTED % (AUTO) 100 %; WHITE BLOOD COUNT 14.2 10^3/uL (4.0-10.5)
[2017-07-15 05:05] LABS: ALANINE AMINOTRANSFERASE 71 U/L (21-72); ALBUMIN 3.5 g/dL (3.5-5.0); ALKALINE PHOSPHATASE 84 U/L (38-126); ANION GAP 10 (5-19); ASPARTATE AMINO TRANSFERASE 42 U/L (17-59); BILIRUBIN,DIRECT 0.3 mg/dL (0.0-0.4); BILIRUBIN,TOTAL 0.6 mg/dL (0.2-1.3); BLOOD UREA NITROGEN 9 mg/dL (7-20); CALCIUM 9.1 mg/dL (8.4-10.2); CARBON DIOXIDE 27 mmol/L (22-30); CHLORIDE 103 mmol/L (98-107); GLUCOSE 131 mg/dL (75-110); LIPASE 58.7 U/L (23-300); MAGNESIUM 1.8 mg/dL (1.6-2.3); POTASSIUM 3.5 mmol/L (3.6-5.0); TOTAL PROTEIN 6.3 g/dL (6.3-8.2)
[2017-07-15] MEDS: HEPARIN SOD (PORCINE) 5,000 UNIT/ML 1 ML SYRINGE SUBCUT SCH ×3 (06:06→22:17)
[2017-07-15] MEDS ORDERED: POTASSIUM CHLORIDE 10 MEQ TABLET.SA PO ONE (07:28)
[2017-07-15] MEDS: INSULIN LISPRO 100 UNIT/ML 3 ML VIAL SUBCUT SCH ×3 (08:25→17:12)
[2017-07-15] MEDS: FENOFIBRATE NANOCRYSTALLIZED 145 MG TABLET PO SCH (09:19)
[2017-07-15] MEDS: PANTOPRAZOLE SODIUM 40 MG VIAL IV SCH ×2 (09:20→22:24)
[2017-07-15] MEDS: INSULIN DETEMIR 100 UNIT/ML 3 ML PEN SUBCUT SCH ×2 (09:21→22:24)
[2017-07-15] MEDS: POTASSI CL 20 MEQ/D5-1/2NS 1L 1,000 ML IV PRN (09:22)
--- NOTE | 2017-07-15 09:39 | PDOC PROGRESS REPORT ---
Subjective Reason For Visit: DKA PANCREATITIS Patient remains n.p.o. still complaining of abdominal back pain. Feels like he has to have a bowel movement. Physical Exam Vital Signs: Temp Pulse Resp BP Pulse Ox 99.2 F 101 H 18 124/73 95 07/15/17 08:19 07/15/17 08:19 07/15/17 08:19 07/15/17 08:19 07/15/17 08:19 Intake & Output 07/14/17 07/15/17 07/16/17 06:59 06:59 06:59 Intake Total 6000 2915 Output Total 650 600 Balance 5350 2315 Weight 103.8 kg 93.4 kg General appearance: PRESENT: mild distress, other - Patient very agitated. GI/Abdominal exam: PRESENT: other - Abdomen is slightly distended, diffusely tender but no rigidity. Results Laboratory Results: 07/15/17 04:18 07/15/17 04:18 07/14/17 07/15/17 07/15/17 11:35 04:18 04:18 WBC 14.2 H RBC 4.07 L Hgb 12.3 L Hct 36.7 L MCV 90 MCH 30.3 MCHC 33.7 RDW 13.7 Plt Count 165 Seg Neutrophils % 75.9 Lymphocytes % 15.4 Monocytes % 7.0 Eosinophils % 1.3 Basophils % 0.4 Absolute Neutrophils 10.8 H Absolute Lymphocytes 2.2 Absolute Monocytes 1.0 Absolute Eosinophils 0.2 Absolute Basophils 0.1 Sodium 137.4 140.0 Potassium 3.6 3.5 L Chloride 104 103 Carbon Dioxide 24 27 Anion Gap 9 10 BUN 7 9 Creatinine 0.76 0.74 Est GFR ( Amer) > 60 > 60 Est GFR (Non-Af Amer) > 60 > 60 Glucose 165 H 131 H Calcium 9.0 9.1 Magnesium 1.8 Total Bilirubin 0.6 AST 42 ALT 71 Alkaline Phosphatase 84 Total Protein 6.3 Albumin 3.5 Lipase 58.7 07/12/17 20:50 Clean Catch Midstream Urine Culture - Final NO GROWTH 2 DAYS Impressions: Abdomen Ultrasound 07/12/17 00:00 IMPRESSION: HEPATOMEGALY WITH DIFFUSE FATTY INFILTRATION OF THE LIVER. PANCREAS OBSCURED. OTHERWISE NORMAL RIGHT UPPER QUADRANT ULTRASOUND. Chest/Abdomen CTA 07/12/17 10:04 IMPRESSION: No CT angio evidence of thoracic or abdominal aortic dissection No acute pulmonary emboli There are early changes of pancreatitis surround the uncinate process of pancreas, with retroperitoneal fluid present. NORMAL CT OF THE ABDOMEN AND PELVIS WITH ORAL AND INTRAVENOUS CONTRAST. Abdomen/Pelvis CTA 07/12/17 10:08 IMPRESSION: No CT angio evidence of thoracic or abdominal aortic dissection No acute pulmonary emboli There are early changes of pancreatitis surround the uncinate process of pancreas, with retroperitoneal fluid present. NORMAL CT OF THE ABDOMEN AND PELVIS WITH ORAL AND INTRAVENOUS CONTRAST. Abdomen/Pelvis CT 07/14/17 00:00 IMPRESSION: INCREASED PERIPANCREATIC INFLAMMATORY CHANGE WITH REACTIVE INFLAMMATION OF THE DUODENUM AND GALLBLADDER COMPATIBLE WITH ACUTE PANCREATITIS. NO COMPLICATION OF PANCREATITIS IDENTIFIED SUCH NECROSIS, VENOUS THROMBOSIS OR PSEUDOCYST FORMATION. ADDITIONAL NOTE MADE OF BILATERAL SACROILIITIS WHICH IS NONSPECIFIC. CORRELATE WITH CLINICAL HISTORY/ SEROLOGY STUDIES. HEPATIC STEATOSIS. Chest X-Ray 07/14/17 00:00 IMPRESSION: NO ACUTE CARDIOPULMONARY PROCESS. NO SIGNIFICANT CHANGE FROM PRIOR STUDY. Assessment & Plan - Diagnosis (1) Pancreatitis Qualifiers: Chronicity: acute Pancreatitis type: other Is this a current diagnosis for this admission?: Yes Plan: First episode of acute pancreatitis in this 46-year-old Afro-Armenian male; pancreatitis felt secondary to hyperlipidemia. Patient remains n.p.o. Plan: 1. Continue n.p.o.; rationale for this explained to the patient. 2. Get patient up ambulating and into shower. Orders written 3. No indication for surgical intervention at this time.
[2017-07-15] MEDS: POTASSI CL 40 MEQ/D5-1/2NS 1L 40 MEQ/1,000 ML RTUINJ IV PRN (13:30)
--- NOTE | 2017-07-15 13:40 | PDOC PROGRESS REPORT ---
Subjective Progress Note for:: 07/15/17 Subjective:: Patient complains of stomach pain goes to the back. Reason For Visit: DKA PANCREATITIS Physical Exam Vital Signs: Temp Pulse Resp BP Pulse Ox 100.6 F H 100 16 137/78 H 99 07/15/17 12:35 07/15/17 12:35 07/15/17 12:35 07/15/17 12:35 07/15/17 12:35 Intake & Output 07/14/17 07/15/17 07/16/17 06:59 06:59 06:59 Intake Total 6000 2915 Output Total 650 600 Balance 5350 2315 Weight 103.8 kg 93.4 kg General appearance: PRESENT: no acute distress, cooperative, obese Head exam: PRESENT: atraumatic, normocephalic Eye exam: PRESENT: conjunctiva pink, EOMI, PERRLA Ear exam: PRESENT: normal external ear exam Mouth exam: PRESENT: moist, neck supple Neck exam: PRESENT: full ROM, JVD. ABSENT: tenderness Respiratory exam: PRESENT: clear to auscultation anastasia Cardiovascular exam: PRESENT: RRR. ABSENT: diastolic murmur, systolic murmur Vascular exam: PRESENT: normal capillary refill GI/Abdominal exam: PRESENT: normal bowel sounds, tenderness. ABSENT: soft Musculoskeletal exam: PRESENT: full ROM Neurological exam: PRESENT: alert, oriented to person, oriented to place, oriented to time Psychiatric exam: PRESENT: anxious Results Laboratory Results: 07/15/17 04:18 07/15/17 04:18 07/15/17 07/15/17 04:18 04:18 WBC 14.2 H RBC 4.07 L Hgb 12.3 L Hct 36.7 L MCV 90 MCH 30.3 MCHC 33.7 RDW 13.7 Plt Count 165 Seg Neutrophils % 75.9 Lymphocytes % 15.4 Monocytes % 7.0 Eosinophils % 1.3 Basophils % 0.4 Absolute Neutrophils 10.8 H Absolute Lymphocytes 2.2 Absolute Monocytes 1.0 Absolute Eosinophils 0.2 Absolute Basophils 0.1 Sodium 140.0 Potassium 3.5 L Chloride 103 Carbon Dioxide 27 Anion Gap 10 BUN 9 Creatinine 0.74 Est GFR ( Amer) > 60 Est GFR (Non-Af Amer) > 60 Glucose 131 H Calcium 9.1 Magnesium 1.8 Total Bilirubin 0.6 AST 42 ALT 71 Alkaline Phosphatase 84 Total Protein 6.3 Albumin 3.5 Lipase 58.7 07/12/17 20:50 Clean Catch Midstream Urine Culture - Final NO GROWTH 2 DAYS Impressions: Abdomen Ultrasound 07/12/17 00:00 IMPRESSION: HEPATOMEGALY WITH DIFFUSE FATTY INFILTRATION OF THE LIVER. PANCREAS OBSCURED. OTHERWISE NORMAL RIGHT UPPER QUADRANT ULTRASOUND. Chest/Abdomen CTA 07/12/17 10:04 IMPRESSION: No CT angio evidence of thoracic or abdominal aortic dissection No acute pulmonary emboli There are early changes of pancreatitis surround the uncinate process of pancreas, with retroperitoneal fluid present. NORMAL CT OF THE ABDOMEN AND PELVIS WITH ORAL AND INTRAVENOUS CONTRAST. Abdomen/Pelvis CTA 07/12/17 10:08 IMPRESSION: No CT angio evidence of thoracic or abdominal aortic dissection No acute pulmonary emboli There are early changes of pancreatitis surround the uncinate process of pancreas, with retroperitoneal fluid present. NORMAL CT OF THE ABDOMEN AND PELVIS WITH ORAL AND INTRAVENOUS CONTRAST. Abdomen/Pelvis CT 07/14/17 00:00 IMPRESSION: INCREASED PERIPANCREATIC INFLAMMATORY CHANGE WITH REACTIVE INFLAMMATION OF THE DUODENUM AND GALLBLADDER COMPATIBLE WITH ACUTE PANCREATITIS. NO COMPLICATION OF PANCREATITIS IDENTIFIED SUCH NECROSIS, VENOUS THROMBOSIS OR PSEUDOCYST FORMATION. ADDITIONAL NOTE MADE OF BILATERAL SACROILIITIS WHICH IS NONSPECIFIC. CORRELATE WITH CLINICAL HISTORY/ SEROLOGY STUDIES. HEPATIC STEATOSIS. Chest X-Ray 07/14/17 00:00 IMPRESSION: NO ACUTE CARDIOPULMONARY PROCESS. NO SIGNIFICANT CHANGE FROM PRIOR STUDY. 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 Continue TriCor and Lipitor. Patient has been educated regarding lifestyle modifications (3) High anion gap metabolic acidosis Is this a current diagnosis for this admission?: Yes Plan: Resolved (4) Pancreatitis Qualifiers: Chronicity: acute Pancreatitis type: other Is this a current diagnosis for this admission?: Yes Plan: This is secondary to hyper triglyceridemia. Continue fluids, Protonix and TriCor. Order follow-up triglycerides. Pain management (5) Fever Qualifiers: Fever type: unspecified Qualified Code(s): R50.9 - Fever, unspecified Is this a current diagnosis for this admission?: Yes Plan: Likely due to atelectasis and pancreatitis. Improved (6) Hypokalemia Is this a current diagnosis for this admission?: Yes Plan: Increase potassium in fluids and trend - Time Time Spent with patient: 15-24 minutes Medications reviewed and adjusted accordingly: Yes Anticipated discharge: Home Within: within 72 hours - Inpatient Certification Based on my medical assessment, after consideration of the patient's comorbidities, presenting symptoms, or acuity I expect that the services needed warrant INPATIENT care.: Yes I certify that my determination is in accordance with my understanding of Medicare's requirements for reasonable and necessary INPATIENT services [42 CFR 412.3e].: Yes Medical Necessity: Need For IV Fluids, Need for Pain Control
[2017-07-15] MEDS ORDERED: BISACODYL 10 MG SUPP.RECT PR ONE (14:15)
[2017-07-15] MEDS: METOCLOPRAMIDE HCL INJ/PF 10 MG/2 ML SDV IV SCH (17:26)
[2017-07-15] MEDS: IBUPROFEN 600 MG TABLET PO PRN (20:25)
[2017-07-15] MEDS: ATORVASTATIN CALCIUM 80 MG TABLET PO SCH (22:24)
[2017-07-16] MEDS: METOCLOPRAMIDE HCL INJ/PF 10 MG/2 ML SDV IV SCH ×2 (00:38→05:28)
[2017-07-16] MEDS: POTASSI CL 40 MEQ/D5-1/2NS 1L 40 MEQ/1,000 ML RTUINJ IV PRN (00:38)
[2017-07-16] MEDS: HEPARIN SOD (PORCINE) 5,000 UNIT/ML 1 ML SYRINGE SUBCUT SCH (05:23)
[2017-07-16] MEDS: HYDROMORPHONE HCL INJ/PF 2 MG/ML AMPULE IV PRN (05:28)
[2017-07-16 06:26] LABS: ANION GAP 10 (5-19); BLOOD UREA NITROGEN 9 mg/dL (7-20); CALCIUM 9.1 mg/dL (8.4-10.2); CARBON DIOXIDE 27 mmol/L (22-30); CHLORIDE 104 mmol/L (98-107); GLUCOSE 194 mg/dL (75-110); POTASSIUM 3.8 mmol/L (3.6-5.0); SODIUM 141.4 mmol/L (137-145)
[2017-07-16 06:27] LABS: ABSOLUTE BASOPHILS # (AUTO) 0.1 10^3/uL (0.0-0.2); ABSOLUTE EOSINOPHILS # (AUTO) 0.2 10^3/uL (0.0-0.6); ABSOLUTE LYMPHOCYTES (AUTO) 1.7 10^3/uL (0.5-4.7); ABSOLUTE MONOCYTES (AUTO) 0.9 10^3/uL (0.1-1.4); ABSOLUTE NEUT (AUTO) 9.5 10^3/uL (1.7-8.2); BASOPHILS % (AUTO) 0.5 % (0-2); EOSINOPHILS % (AUTO) 1.6 % (0-6); HEMATOCRIT 37.6 % (37.9-51.0); HEMOGLOBIN 12.5 g/dL (13.5-17.0); MEAN CORPUSCULAR HEMOGLOBIN 29.7 pg (27.0-33.4); MEAN CORPUSCULAR HGB CONC 33.3 g/dL (32.0-36.0); MEAN CORPUSCULAR VOLUME 89 fl (80-97); MONOCYTES % (AUTO) 7.5 % (3-13); PLATELET COUNT 177 10^3/uL (150-450); RED BLOOD COUNT 4.21 10^6/uL (4.35-5.55); RED CELL DISTRIBUTION WIDTH 13.7 % (11.5-14.0); SEGMENTED NEUTROPHILS % (AUTO) 76.4 % (42-78); TOTAL CELLS COUNTED % (AUTO) 100 %; WHITE BLOOD COUNT 12.5 10^3/uL (4.0-10.5)
[2017-07-16 06:37] LABS: TRIGLYCERIDES 587 mg/dL (<150)
[2017-07-16] MEDS: INSULIN LISPRO 100 UNIT/ML 3 ML VIAL SUBCUT SCH (08:54)
[2017-07-16 09:26] VITALS: BP 145/76
--- NOTE | 2017-07-16 13:25 | PDOC DISCHARGE SUMMARY ---
General - Admit/Disc Date/PCP Admission Date/Primary Care Provider: 07/12/17 11:46 KIMBERLY RASMUSSEN PA-C Discharge Date: 07/16/17 - Discharge Diagnosis (1) Pancreatitis Is this a current diagnosis for this admission?: Yes Summary: Most likely secondary to hypertriglyceridemia. (2) Diabetic ketoacidosis Is this a current diagnosis for this admission?: Yes Summary: New onset diabetes. May be related to the acute pancreatitis. Controlled with Lantus. (3) Elevated triglycerides with high cholesterol Is this a current diagnosis for this admission?: Yes Summary: Patient is sent home on TriCor and Lipitor. (4) Hypokalemia Is this a current diagnosis for this admission?: Yes - Additional Information Resuscitation Status: Full Code Discharge Diet: Diabetic Discharge Activity: Activity As Tolerated Prescriptions: Atorvastatin Calcium [Lipitor 80 mg Tablet] 80 mg PO QHS #30 tablet Fenofibrate Nanocrystallized [Tricor 145 mg Tablet] 145 mg PO DAILY #30 tablet Insulin Detemir [Levemir Insulin 100 units/mL] 30 unit SUBCUT Q12 #1 insuln.pen Oxycodone HCl 5 mg PO Q4HP PRN #14 tablet PRN Reason: Home Medications: Atorvastatin Calcium [Lipitor 80 mg Tablet] 80 mg PO QHS #30 tablet 07/16/17 Fenofibrate Nanocrystallized [Tricor 145 mg Tablet] 145 mg PO DAILY #30 tablet 07/16/17 Flu Vacc [id number] Up/Pf [Fluzone Adlt Quad [id number] Vac 0.5 ml Syr] 0.5 ml IM .DISCHARGE PRN disp.syrin 07/16/17 Insulin Detemir [Levemir Insulin 100 units/mL] 30 unit SUBCUT Q12 #1 insuln.pen 07/16/17 Oxycodone HCl 5 mg PO Q4HP PRN #14 tablet 07/16/17 History of Present Illness History of Present Illness: RAYNA YOUNG is a 46 year old male with a history of hypertension and tobacco abuse who presented with 48 hours of nausea and abdominal pain. The patient on CT scan was found to have pancreatic inflammation consistent with acute pancreatitis. The patient does not drink alcohol and had no obvious gallstones. Patient also was noted to have hyperglycemia with ketoacidosis no previous history of diabetes Hospital Course Hospital Course: 46-year-old male who presented with abdominal pain and nausea, vomiting. He was found to have pancreatitis on CT scan. He was made n.p.o. and given IV fluids as well as IV painkillers. Patient has had improvement in his pain and has been tolerating a diet with minimal pain. When he presented he was also found to have hyperglycemia along with anion gap acidosis. This was a new diagnosis for the patient and he was given insulin along with the fluids and had improvement in his blood sugars. The patient is currently on Lantus with control of his blood sugars. Patient will stay on the insulin. Patient's other medical problems were stable during this hospitalization. Physical Exam Vital Signs: Temp Pulse Resp BP Pulse Ox 98.4 F 89 16 145/76 H 97 07/16/17 09:25 07/16/17 09:25 07/16/17 09:25 07/16/17 09:25 07/16/17 09:25 Intake & Output 07/15/17 07/16/17 07/17/17 06:59 06:59 06:59 Intake Total 2915 2775 Output Total 600 800 Balance 2315 1975 Weight 93.4 kg 93.4 kg General appearance: PRESENT: no acute distress Eye exam: PRESENT: conjunctiva pink. ABSENT: scleral icterus Mouth exam: PRESENT: moist, tongue midline Neck exam: ABSENT: JVD Respiratory exam: PRESENT: clear to auscultation anastasia. ABSENT: rales, rhonchi, wheezes Cardiovascular exam: PRESENT: RRR. ABSENT: diastolic murmur, rubs, systolic murmur GI/Abdominal exam: PRESENT: normal bowel sounds, soft. ABSENT: distended, guarding, mass, organolmegaly, rebound, tenderness Extremities exam: ABSENT: calf tenderness, clubbing, pedal edema Neurological exam: PRESENT: alert, awake, oriented to person, oriented to place , oriented to time, oriented to situation, CN II-XII grossly intact. ABSENT: motor sensory deficit Psychiatric exam: PRESENT: appropriate affect Skin exam: PRESENT: dry, intact, warm. ABSENT: cyanosis, rash Results Laboratory Results: 07/16/17 05:24 07/16/17 05:24 07/16/17 07/16/17 05:24 05:24 WBC 12.5 H RBC 4.21 L Hgb 12.5 L Hct 37.6 L MCV 89 MCH 29.7 MCHC 33.3 RDW 13.7 Plt Count 177 Seg Neutrophils % 76.4 Lymphocytes % 14.0 Monocytes % 7.5 Eosinophils % 1.6 Basophils % 0.5 Absolute Neutrophils 9.5 H Absolute Lymphocytes 1.7 Absolute Monocytes 0.9 Absolute Eosinophils 0.2 Absolute Basophils 0.1 Sodium 141.4 Potassium 3.8 Chloride 104 Carbon Dioxide 27 Anion Gap 10 BUN 9 Creatinine 0.81 Est GFR ( Amer) > 60 Est GFR (Non-Af Amer) > 60 Glucose 194 H Calcium 9.1 Magnesium 2.0 Triglycerides 587 H Impressions: Abdomen Ultrasound 07/12/17 00:00 IMPRESSION: HEPATOMEGALY WITH DIFFUSE FATTY INFILTRATION OF THE LIVER. PANCREAS OBSCURED. OTHERWISE NORMAL RIGHT UPPER QUADRANT ULTRASOUND. Chest/Abdomen CTA 07/12/17 10:04 IMPRESSION: No CT angio evidence of thoracic or abdominal aortic dissection No acute pulmonary emboli There are early changes of pancreatitis surround the uncinate process of pancreas, with retroperitoneal fluid present. NORMAL CT OF THE ABDOMEN AND PELVIS WITH ORAL AND INTRAVENOUS CONTRAST. Abdomen/Pelvis CTA 07/12/17 10:08 IMPRESSION: No CT angio evidence of thoracic or abdominal aortic dissection No acute pulmonary emboli There are early changes of pancreatitis surround the uncinate process of pancreas, with retroperitoneal fluid present. NORMAL CT OF THE ABDOMEN AND PELVIS WITH ORAL AND INTRAVENOUS CONTRAST. Abdomen/Pelvis CT 07/14/17 00:00 IMPRESSION: INCREASED PERIPANCREATIC INFLAMMATORY CHANGE WITH REACTIVE INFLAMMATION OF THE DUODENUM AND GALLBLADDER COMPATIBLE WITH ACUTE PANCREATITIS. NO COMPLICATION OF PANCREATITIS IDENTIFIED SUCH NECROSIS, VENOUS THROMBOSIS OR PSEUDOCYST FORMATION. ADDITIONAL NOTE MADE OF BILATERAL SACROILIITIS WHICH IS NONSPECIFIC. CORRELATE WITH CLINICAL HISTORY/ SEROLOGY STUDIES. HEPATIC STEATOSIS. Chest X-Ray 07/14/17 00:00 IMPRESSION: NO ACUTE CARDIOPULMONARY PROCESS. NO SIGNIFICANT CHANGE FROM PRIOR STUDY. Qualifiers PATEINT BEING DISCHARGED WITH ANY OF THE FOLLOWING DIAGNOSIS?: No Plan Discharge Plan: Discharged to home. Follow-up with primary care in 1-2 weeks. Time Spent: Greater than 30 Minutes
== END 2017-07-16 10:20 | disposition home or self-care (01) | DRG 438 ==
LOC: ER 09:38 → EH 11:46 → 4N 13:08
PROVIDERS: ADMIT Internal Medicine; ATTEND Internal Medicine
DX: K85.90 Acute pancreatitis without necrosis or infection, unspecified (principal); E11.10 Type 2 diabetes mellitus with ketoacidosis without coma; E87.2 Acidosis; E78.2 Mixed hyperlipidemia; E87.6 Hypokalemia; I10 Essential (primary) hypertension; E78.5 Hyperlipidemia, unspecified; R07.9 Chest pain, unspecified; F41.9 Anxiety disorder, unspecified; F90.9 Attention-deficit hyperactivity disorder, unspecified type; F17.210 Nicotine dependence, cigarettes, uncomplicated
CPT/HCPCS: 36415; 71020; 71275; 74174; 74177; 76705; 80048; 80053; 80061; 80307; 81001; 82550; 82553; 82962; 83036; 83605; 83690; 83735; 84478; 84484; 85025; 85652; 87040; 87086; 90686; 93005; 93010; 94799; 96361; 96374; 96375; 99291; J1170; J1335; J1644; J1815; J1885; J1956; J2270; J2405; J2765; J3010; J3480; J3490; J7030; J7040; S0164

== ENCOUNTER 2017-08-09 18:48 | Emergency (ER) | payer MEDICAID ==
[2017-08-09 19:11] VITALS: BP 136/79
== END 2017-08-09 20:12 | disposition left against medical advice (07) ==
LOC: ER 18:48
DX: Z53.21 Procedure and treatment not carried out due to patient leaving prior to being seen by health care provider (principal); R41.82 Altered mental status, unspecified

== ENCOUNTER → 2017-08-16 | Outpatient (CLI) | payer MEDICAID ==
[2017-08-16 19:16] LABS: HEMATOCRIT 44.5 % (37.9-51.0); HEMOGLOBIN 14.8 g/dL (13.5-17.0); MEAN CORPUSCULAR HGB CONC 33.4 g/dL (32.0-36.0); MEAN CORPUSCULAR VOLUME 90 fl (80-97); PLATELET COUNT 250 10^3/uL (150-450); RED BLOOD COUNT 4.95 10^6/uL (4.35-5.55); RED CELL DISTRIBUTION WIDTH 14.1 % (11.5-14.0); WHITE BLOOD COUNT 10.8 10^3/uL (4.0-10.5)
[2017-08-16 19:41] LABS: ALANINE AMINOTRANSFERASE 115 U/L (21-72); ALBUMIN 4.7 g/dL (3.5-5.0); ALKALINE PHOSPHATASE 75 U/L (38-126); AMYLASE 93 U/L (30-110); ANION GAP 11 (5-19); ASPARTATE AMINO TRANSFERASE 59 U/L (17-59); BILIRUBIN,DIRECT 0.4 mg/dL (0.0-0.4); BILIRUBIN,TOTAL 0.4 mg/dL (0.2-1.3); BLOOD UREA NITROGEN 15 mg/dL (7-20); CALCIUM 10.2 mg/dL (8.4-10.2); CARBON DIOXIDE 26 mmol/L (22-30); CHLORIDE 106 mmol/L (98-107); GLUCOSE 66 mg/dL (75-110); LIPASE 131.1 U/L (23-300); POTASSIUM 4.3 mmol/L (3.6-5.0); SODIUM 142.7 mmol/L (137-145)
== END ==
LOC: OD 17:18
PROVIDERS: ATTEND Physician Assistant
DX: E10.9 Type 1 diabetes mellitus without complications (principal); E66.9 Obesity, unspecified; K85.90 Acute pancreatitis without necrosis or infection, unspecified
CPT/HCPCS: 36415; 80053; 82150; 83036; 83690; 85027

== ENCOUNTER → 2017-09-12 | Outpatient (CLI) | payer MEDICAID ==
--- NOTE | 2017-09-12 13:47 | RADIOLOGY REPORT (SQ) ---
EXAM DESCRIPTION: NM HIDA SCAN WITH CCK COMPLETED DATE/TIME: 09/12/2017 1:00 pm REASON FOR STUDY: RUQ ABDOMINAL PAIN R10.11 RIGHT UPPER QUADRANT PAIN COMPARISON: Ultrasound gallbladder reported no stones. 07/12/2017 RADIONUCLIDE AND DOSE: DOSAGE RADIONUCLIDE: 5.37 millicuries Tc99m Mebrofenin. DOSAGE CCK: 2.2 micrograms. DOSAGE MORPHINE: Not required. The route of agent administration: Intravenous TECHNIQUE: Serial imaging right upper quadrant up to 60 minutes following injection of radionuclide. CCK injected after gallbladder visualized. LIMITATIONS: None. FINDINGS: LIVER: Normal visualization without areas of photopenia. INTRAHEPATIC BILE DUCTS: Normal size and no delay in visualization. COMMON BILE DUCT: Normal without dilatation. GALLBLADDER: Normal visualization. Calculated ejection fraction of 87%. Normal range is greater th an 35%. PHYSICAL RESPONSE: Patients presenting complaint was not reproduced. OTHER: No other significant finding. IMPRESSION: NORMAL STUDY WITHOUT CYSTIC OR COMMON DUCT OBSTRUCTION. NORMAL GALLBLADDER EJECTION FRA CTION. NO EVIDENCE FOR BILIARY DYSKINESIS. TECHNICAL DOCUMENTATION: JOB ID: [id number] [employer]- All Rights Reserved Reading location - IP/workstation name: [email or web address]
== END ==
LOC: RAD 11:01
PROVIDERS: ATTEND Physician Assistant
DX: R10.11 Right upper quadrant pain (principal)
CPT/HCPCS: 78227; J2805; A9537; Q9969

== ENCOUNTER → 2018-01-10 | Outpatient (CLI) | payer MEDICAID ==
--- NOTE | 2018-01-10 15:44 | WOMENS IMAGING REPORT ---
EXAM DESCRIPTION: BILAT DIAGNOSTIC MAMMO W/CAD; U/S BREAST UNILATERAL, COMPL COMPLETED DATE/TIME: 01/10/2018 10:36 am; 01/10/2018 11:24 am REASON FOR STUDY: RIGHT BREAST LUMP; RT BREAST N63.12 UNSPECIFIED LUMP IN THE RIGHT BREAST, UPPER I NNER LEYDI COMPARISON: CT angio chest 07/12/2017 TECHNIQUE: Standard craniocaudal and mediolateral oblique views of each breast recorded using digita l acquisition. Right male breast 90 mediolateral view. Right male breast ultrasound. LIMITATIONS: None. FINDINGS: RIGHT BREAST MASSES: No suspicious masses. CALCIFICATIONS: No new or suspicious calcifications. ARCHITECTURAL DISTORTION: None. DEVELOPING DENSITY: None. ASYMMETRY: None noted. OTHER: Moderate right-sided gynecomastia. LEFT BREAST MASSES: No suspicious masses. CALCIFICATIONS: No new or suspicious calcifications. ARCHITECTURAL DISTORTION: None. DEVELOPING DENSITY: None. ASYMMETRY: None noted. OTHER: Mild left-sided gynecomastia Read with the assistance of CAD: .[facility] - R2 Cenova Version 1.3 .[facility] - R2 Cenova Version 1.3 .[facility] - R2 Cenova Version 2.4 .[facility] R2 Cenova Version 2.4 .[facility] - R2 Food Preparation Supervisor Version 9.2 Right male breast ultrasound: Ultrasound of the right male breast demonstrates a small amount of retroareolar breast tissue with cl assic appearance for gynecomastia. No definite worrisome sonographic masses. No cysts. No worrisom e acoustic absorption. Limited comparison left retroareolar imaging was performed which demonstrates mild left gynecomastia. IMPRESSION: No mammographic or sonographic evidence for malignancy bilaterally. Bilateral male bell st gynecomastia is present right greater than left. BREAST DENSITY: a. The breasts are almost entirely fatty. BIRAD: 2 Benign findings. RECOMMENDATION: RECOMMENDED FOLLOW UP: Clinical follow-up for gynecomastia. SPECIFIC INTERVENTION/IMAGING/CONSULTATION RECOMMENDED:Clinical follow-up for gynecomastia. COMMUNICATION:Patient notified by letter COMMENT: The patient has been notified of the results by letter per SA requirements. Additional no tification policies are in place for contacting patient with suspicious or incomplete findings. Quality ID #[id number]: The [employer] recommends an annual screening mammogram for women aged 40 years or over. This facility utilizes a reminder system to ensure that all patients receive reminder letters, and/or direct phone calls for appointments. This includes reminders for routine scr eening mammograms, diagnostic mammograms, or other Breast Imaging Interventions when appropriate. Th is patient will be placed in the appropriate reminder system. The [employer] (ACR) has developed recommendations for screening MRI of the breast s in certain patient populations, to be used in conjunction with mammography. Breast MRI surveillanc e may be appropriate for women with more than 20% lifetime risk of developing breast cancer as deter mined by genetic testing, significant family history of the disease, or history of mantle radiation f or Hodgkins Disease. ACR Practice Guidelines 2008. TECHNICAL DOCUMENTATION: FINDING NUMBER: (1) ASSESSMENT: (1) JOB ID: [id number] [employer]- All Rights Reserved Reading location - IP/workstation name: [email or web address]
--- NOTE | 2018-01-10 15:44 | WOMENS IMAGING REPORT ---
EXAM DESCRIPTION: BILAT DIAGNOSTIC MAMMO W/CAD; U/S BREAST UNILATERAL, COMPL COMPLETED DATE/TIME: 01/10/2018 10:36 am; 01/10/2018 11:24 am REASON FOR STUDY: RIGHT BREAST LUMP; RT BREAST N63.12 UNSPECIFIED LUMP IN THE RIGHT BREAST, UPPER I NNER LEYDI COMPARISON: CT angio chest 07/12/2017 TECHNIQUE: Standard craniocaudal and mediolateral oblique views of each breast recorded using digita l acquisition. Right male breast 90 mediolateral view. Right male breast ultrasound. LIMITATIONS: None. FINDINGS: RIGHT BREAST MASSES: No suspicious masses. CALCIFICATIONS: No new or suspicious calcifications. ARCHITECTURAL DISTORTION: None. DEVELOPING DENSITY: None. ASYMMETRY: None noted. OTHER: Moderate right-sided gynecomastia. LEFT BREAST MASSES: No suspicious masses. CALCIFICATIONS: No new or suspicious calcifications. ARCHITECTURAL DISTORTION: None. DEVELOPING DENSITY: None. ASYMMETRY: None noted. OTHER: Mild left-sided gynecomastia Read with the assistance of CAD: .[facility] - R2 Cenova Version 1.3 .[facility] Imaging - R2 Cenova Version 1.3 .[facility] - R2 Cenova Version 2.4 .[facility] [place] R2 Cenova Version 2.4 .[facility] - R2 Prescription Benefit Specialist Version 9.2 Right male breast ultrasound: Ultrasound of the right male breast demonstrates a small amount of retroareolar breast tissue with cl assic appearance for gynecomastia. No definite worrisome sonographic masses. No cysts. No worrisom e acoustic absorption. Limited comparison left retroareolar imaging was performed which demonstrates mild left gynecomastia. IMPRESSION: No mammographic or sonographic evidence for malignancy bilaterally. Bilateral male bell st gynecomastia is present right greater than left. BREAST DENSITY: a. The breasts are almost entirely fatty. BIRAD: 2 Benign findings. RECOMMENDATION: RECOMMENDED FOLLOW UP: Clinical follow-up for gynecomastia. SPECIFIC INTERVENTION/IMAGING/CONSULTATION RECOMMENDED:Clinical follow-up for gynecomastia. COMMUNICATION:Patient notified by letter COMMENT: The patient has been notified of the results by letter per SA requirements. Additional no tification policies are in place for contacting patient with suspicious or incomplete findings. Quality ID #225: The [employer] recommends an annual screening mammogram for women aged 40 years or over. This facility utilizes a reminder system to ensure that all patients receive reminder letters, and/or direct phone calls for appointments. This includes reminders for routine scr eening mammograms, diagnostic mammograms, or other Breast Imaging Interventions when appropriate. Th is patient will be placed in the appropriate reminder system. The [employer] (ACR) has developed recommendations for screening MRI of the breast s in certain patient populations, to be used in conjunction with mammography. Breast MRI surveillanc e may be appropriate for women with more than 20% lifetime risk of developing breast cancer as deter mined by genetic testing, significant family history of the disease, or history of mantle radiation f or Hodgkins Disease. ACR Practice Guidelines 2008. TECHNICAL DOCUMENTATION: FINDING NUMBER: (1) ASSESSMENT: (1) JOB ID: [id number] [employer]- All Rights Reserved Reading location - IP/workstation name: [email or web address]
== END ==
LOC: WI 10:18
PROVIDERS: ATTEND Family Medicine
DX: N62 Hypertrophy of breast (principal)
CPT/HCPCS: 76641; 77066

== ENCOUNTER 2018-05-23 08:05 | Day surgery (SDC) | payer MEDICAID ==
[2018-05-23] MEDS ORDERED: PROPOFOL INJ 200 MG/20 ML VIAL IV ONE (09:51)
[2018-05-23 12:08] VITALS: BP 115/66
--- NOTE | 2018-05-23 12:26 | Operative Report ---
Operative Report DATE OF SURGERY: 05/23/18 Operative Report: The risks, benefits and alternatives of the procedure including the risk of bleeding, perforation requiring surgery are explained to the patient in detail and informed consent is obtained. Patient is brought back to the operating room and placed in the left, lateral decubital position. Timeout was called. Propofol medication is administered. A rectal examination is done which did not reveal any masses, tears or fissures. An Olympus videoscope was introduced into the patient's rectum. The scope was then carefully advanced all the way to the cecum. The cecum was identified by the usual anatomical landmarks of the ileocecal valve as well as the appendiceal office. Photodocumentation is obtained. The scope was then sequentially pulled back via the various segments of the colon including the ascending colon, hepatic flexure, transverse colon, splenic flexure, descending colon and finally into the rectosigmoid portions of the colon. Retroflexion maneuvers performed. The risks benefits and alternatives of the procedure explained to the patient in detail and informed consent is obtained.A GIF Olympus video scope was inserted into the patient's mouth and hypopharynx, the esophagus is identified intubated and insufflated, the scope was then advanced through the esophagus stomach and duodenum, retroflexion maneuver is done ,the esophagus stomach and first and second portions of the duodenum examined PREOPERATIVE DIAGNOSIS: Change in bowel habits. Gastroesophageal reflux disease POSTOPERATIVE DIAGNOSIS: Multiple rectal polyps that required removal via snare polypectomy. Extended procedure time. Internal hemorrhoids. Gastritis status post biopsy. 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 Duodenitis OPERATION: Colonoscopy with snare polypectomy. EGD with biopsy SURGEON: EMA CARRENO ANESTHESIA: LMAC TISSUE REMOVED OR ALTERED: As noted above COMPLICATIONS: None. ESTIMATED BLOOD LOSS: None. INTRAOPERATIVE FINDINGS: As noted above. PROCEDURE: Patient tolerated the procedure well. No immediate postprocedure complications are noted. Patient discharged in good condition. Discharge date 05/22/2018. Discharge diet: Regular. Discharge activity: Regular. 2-3-week follow-up to discuss findings. Patient is instructed to call the office or proceed to the emergency room should there be any further proximal questions. Wait on the pathology. 3-5-year surveillance colonoscopy.
--- NOTE | 2018-05-23 13:44 | EKG REPORT ---
SEVERITY:- ABNORMAL ECG - SINUS RHYTHM LEFT ANTERIOR FASCICULAR BLOCK : Confirmed by: Renan Ohara MD 23-May-2018 13:43:32
== END 2018-05-23 12:05 | disposition home or self-care (01) ==
LOC: OROUT 08:05
PROVIDERS: ATTEND Internal Medicine Gastroenterology
DX: K21.9 Gastro-esophageal reflux disease without esophagitis (principal); K63.5 Polyp of colon; K64.8 Other hemorrhoids; K29.70 Gastritis, unspecified, without bleeding; K20.9 Esophagitis, unspecified; K29.80 Duodenitis without bleeding; I10 Essential (primary) hypertension; E11.9 Type 2 diabetes mellitus without complications; Z88.6 Allergy status to analgesic agent; E78.5 Hyperlipidemia, unspecified; Z68.39 Body mass index [BMI] 39.0-39.9, adult
CPT/HCPCS: 43239; 45385; 82962; 88305 ×2; 93005; 93010; J2704; 813

== ENCOUNTER → 2018-06-02 | Outpatient (CLI) | payer MEDICAID ==
[2018-06-02 11:44] LABS: ANION GAP 9 (5-19); BLOOD UREA NITROGEN 10 mg/dL (7-20); CALCIUM 9.8 mg/dL (8.4-10.2); CARBON DIOXIDE 31 mmol/L (22-30); CHLORIDE 102 mmol/L (98-107); GLUCOSE 152 mg/dL (75-110); POTASSIUM 4.4 mmol/L (3.6-5.0); SODIUM 142.1 mmol/L (137-145)
== END ==
LOC: LAB 11:18
PROVIDERS: ATTEND Internal Medicine Cardiovascular Disease
DX: I10 Essential (primary) hypertension (principal); R00.2 Palpitations
CPT/HCPCS: 36415; 80048

== ENCOUNTER → 2018-06-12 | Outpatient (CLI) | payer MEDICAID ==
[2018-06-15 07:41] LABS: SEX HORM BINDING GLOBULIN 22.9 nmol/L (16.5-55.9); TESTOSTERONE FREE (DIRECT) 11.8 pg/mL (6.8-21.5)
== END ==
LOC: LAB 16:11
PROVIDERS: ATTEND Family Medicine
DX: E34.9 Endocrine disorder, unspecified (principal)
CPT/HCPCS: 36415; 84270; 84402; 84403

== ENCOUNTER → 2019-05-27 | Outpatient (CLI) | payer MEDICAID ==
--- NOTE | 2019-05-27 15:11 | RADIOLOGY REPORT (SQ) ---
EXAM DESCRIPTION: SHOULDER LEFT 2 OR MORE VIEWS COMPLETED DATE/TIME: 05/27/2019 2:56 pm REASON FOR STUDY: M25.512 PAIN IN LEFT SHOULDER M25.512 PAIN IN LEFT SHOULDER COMPARISON: None. NUMBER OF VIEWS: Three views. TECHNIQUE: Internal rotation, external rotation, and Y view images acquired of the left shoulder. LIMITATIONS: None. FINDINGS: MINERALIZATION: Normal. BONES: No acute fracture. No worrisome bone lesions. JOINTS: No dislocation. VISUALIZED LUNGS AND RIBS: No pneumothorax. No rib fracture. SOFT TISSUES: No radiopaque foreign body. OTHER: No other significant finding. IMPRESSION: NEGATIVE STUDY OF THE LEFT SHOULDER. NO RADIOGRAPHIC EVIDENCE OF ACUTE INJURY. TECHNICAL DOCUMENTATION: JOB ID: [id number] [employer]- All Rights Reserved Reading location - IP/workstation name: [email or web address]
== END ==
LOC: RAD 14:36
PROVIDERS: ATTEND Nurse Practitioner Psychiatric/Mental Health
DX: M25.512 Pain in left shoulder (principal)

== ENCOUNTER 2019-08-29 12:49 | Emergency (ER) | payer MEDICAID ==
[2019-08-29] MEDS ORDERED: ASPIRIN 81 MG TABLET, CHEWABLE PO ONE (13:07)
--- NOTE | 2019-08-29 13:09 | ER Document Report ---
ED Medical Screen (RME) - General Chief Complaint: Chest Pain Stated Complaint: CHEST PAIN Time Seen by Provider: 08/29/19 13:07 Primary Care Provider: BRIGIDO BASS DO [Primary Care Provider] - Follow up as needed Notes: 48-year-old male presents for chest tightness with radiation down his left arm that occurred earlier. Patient states it felt like his heart was "racing out of his chest." Patient had associated lightheadedness. Denies dyspnea or nausea/vomiting. Patient states he took aspirin 81 mg and 1 sublingual nitro with improvement in chest pain. Lungs clear to auscultation bilaterally. Regular rate and rhythm. I have greeted and performed a rapid initial assessment of this patient. A comprehensive ED assessment and evaluation of the patient, analysis of test results and completion of the medical decision making process with be conducted by additional ED providers. TRAVEL OUTSIDE OF THE [place] IN LAST 30 DAYS: No - Related Data Allergies/Adverse Reactions: acetaminophen Allergy (Severe, Verified 05/22/18 15:39) ? Past Medical History - Past Medical History Cardiac Medical History: Reports: Hx Hypertension Denies: Hx Coronary Artery Disease, Hx Heart Attack Pulmonary Medical History: Denies: Hx Asthma, Hx Bronchitis, Hx COPD, Hx Pneumonia Neurological Medical History: Denies: Hx Cerebrovascular Accident, Hx Seizures Renal/ Medical History: Denies: Hx Peritoneal Dialysis Musculoskeltal Medical History: Denies Hx Arthritis Psychiatric Medical History: Reports: Hx Anxiety, Hx Attention Deficit Hyperactivity Disorder, Hx Depression, Hx Post Traumatic Stress Disorder Past Surgical History: Reports: Hx Orthopedic Surgery - Ganglion cyst - Immunizations Hx Diphtheria, Pertussis, Tetanus Vaccination: Yes Physical Exam - Vital signs Vitals: Temp Pulse Resp BP Pulse Ox 98.3 F 103 H 22 H 140/68 H 94 08/29/19 12:59 08/29/19 12:59 08/29/19 12:59 08/29/19 12:59 08/29/19 12:59 Course - Vital Signs Vital signs: Temp Pulse Resp BP Pulse Ox 98.3 F 103 H 22 H 140/68 H 94 08/29/19 12:59 08/29/19 12:59 08/29/19 12:59 08/29/19 12:59 08/29/19 12:59 Doctor's Discharge - Discharge Referrals: SHELIA,BRIGIDO, DO [Primary Care Provider] - Follow up as needed
--- NOTE | 2019-08-29 13:31 | RADIOLOGY REPORT (SQ) ---
EXAM DESCRIPTION: CHEST 2 VIEWS COMPLETED DATE/TIME: 08/29/2019 1:20 pm REASON FOR STUDY: chest pain COMPARISON: 2017 TECHNIQUE: Frontal and lateral radiographic views of the chest acquired. NUMBER OF VIEWS: Two view. LIMITATIONS: None. FINDINGS: LUNGS AND PLEURA: No opacities, masses or pneumothorax. No pleural effusion. MEDIASTINUM AND HILAR STRUCTURES: No masses or contour abnormalities. HEART AND VASCULAR STRUCTURES: Heart normal size. No evidence for failure. BONES: No acute findings. HARDWARE: None in the chest. OTHER: No other significant finding. IMPRESSION: NO SIGNIFICANT RADIOGRAPHIC FINDING IN THE CHEST. TECHNICAL DOCUMENTATION: JOB ID: [id number] [employer]- All Rights Reserved Reading location - IP/workstation name: [email or web address]
[2019-08-29 13:58] LABS: ABSOLUTE BASOPHILS # (AUTO) 0.1 10^3/uL (0.0-0.2); ABSOLUTE EOSINOPHILS # (AUTO) 0.3 10^3/uL (0.0-0.6); ABSOLUTE LYMPHOCYTES (AUTO) 3.4 10^3/uL (0.5-4.7); ABSOLUTE MONOCYTES (AUTO) 0.7 10^3/uL (0.1-1.4); ABSOLUTE NEUT (AUTO) 6.1 10^3/uL (1.7-8.2); BASOPHILS % (AUTO) 0.5 % (0-2); EOSINOPHILS % (AUTO) 2.5 % (0-6); HEMATOCRIT 52.2 % (37.9-51.0); HEMOGLOBIN 17.5 g/dL (13.5-17.0); LYMPHOCYTES % (AUTO) 32.6 % (13-45); MEAN CORPUSCULAR HEMOGLOBIN 30.3 pg (27.0-33.4); MEAN CORPUSCULAR HGB CONC 33.5 g/dL (32.0-36.0); MEAN CORPUSCULAR VOLUME 90 fl (80-97); MONOCYTES % (AUTO) 6.7 % (3-13); PLATELET COUNT 204 10^3/uL (150-450); RED BLOOD COUNT 5.79 10^6/uL (4.35-5.55); RED CELL DISTRIBUTION WIDTH 14.7 % (11.5-14.0); SEGMENTED NEUTROPHILS % (AUTO) 57.7 % (42-78); TOTAL CELLS COUNTED % (AUTO) 100 %; WHITE BLOOD COUNT 10.6 10^3/uL (4.0-10.5)
[2019-08-29 14:01] LABS: APPEARANCE,URINE CLEAR; BILIRUBIN,URINE NEGATIVE (NEGATIVE); COLOR,URINE YELLOW; GLUCOSE, URINE >=500 mg/dL (NEGATIVE); KETONES,URINE NEGATIVE (NEGATIVE); PROTEIN,URINE NEGATIVE (NEGATIVE); URINE SPECIFIC GRAVITY 1.037; UROBILINOGEN,URINE NEGATIVE mg/dL (<2.0)
[2019-08-29 14:12] LABS: ALBUMIN 4.3 g/dL (3.5-5.0); ALKALINE PHOSPHATASE 88 U/L (38-126); ANION GAP 10 (5-19); ASPARTATE AMINO TRANSFERASE 32 U/L (17-59); BILIRUBIN,DIRECT 0.3 mg/dL (0.0-0.4); BILIRUBIN,TOTAL 0.3 mg/dL (0.2-1.3); BLOOD UREA NITROGEN 9 mg/dL (7-20); CALCIUM 9.7 mg/dL (8.4-10.2); CARBON DIOXIDE 30 mmol/L (22-30); CHLORIDE 99 mmol/L (98-107); GLUCOSE 183 mg/dL (75-110); POTASSIUM 3.9 mmol/L (3.6-5.0); TOTAL PROTEIN 7.7 g/dL (6.3-8.2)
--- NOTE | 2019-08-29 14:31 | EKG REPORT ---
SEVERITY:- ABNORMAL ECG - SINUS TACHYCARDIA PROBABLE LEFT ATRIAL ABNORMALITY LEFT ANTERIOR FASCICULAR BLOCK : Confirmed by: Renan Ohara MD 29-Aug-2019 14:30:30
--- NOTE | 2019-08-29 15:49 | ER Document Report ---
ED General - General Chief Complaint: Chest Pain Stated Complaint: CHEST PAIN Time Seen by Provider: 08/29/19 13:07 Primary Care Provider: BRIGIDO BASS DO [Primary Care Provider] - Follow up as needed TRAVEL OUTSIDE OF THE [place] IN LAST 30 DAYS: No - HPI Notes: Mr. Welsh is a 48-year-old male presenting with a chief complaint of transient chest discomfort. This gentleman says 1 of his pets was sick and he stayed up with the animal all night long. He has been smoking cigarettes heavily overnight and drinking black coffee. He had 2 brief episodes of retrosternal discomfort radiating up into his throat each lasting about 5 minutes. No associated dyspnea or vomiting. No associated diaphoresis. He is currently pain-free. His pain was nonexertional. Patient was evaluated by payroll lead about 18 months ago for chest pain and had a treadmill test at that time which was negative. Denies any known history of thromboembolic disease. Multiple coronary risk factors: Cigarette smoking, family history, hyperlipidemia, hypertension. HEART Score: HISTORY 0 ECG 0 AGE 1 RISK FACTORS 2 TROPONIN 0 TOTAL: 3 If HEART score is = 3 AND both tronponin measurments are normal, the 30 day risk of a major adverse cardiac event (all-cause mortality, myocardia infarction or need for coronary revscularization) is < 1% (Sensitivity 100%, NPV 100%). PERC SCORE (HADCLOTS) H Hormone administration negative A Age less than 50 D NO DVT/PE previously C no hemoptysis L no unilateral leg eg swelling unilaterally O O2 sat greater than 95% T no tachycardia S no surgery/Trauma recently - Related Data Allergies/Adverse Reactions: acetaminophen Allergy (Severe, Verified 08/29/19 13:10) ? Home Medications: nitro prn. levemir. metformin. novolog. atorvastatin. fenofibrate. dexilant. omeprazole. oxycodone. neurotin Past Medical History - General Information source: Patient - Social History Smoking Status: Current Every Day Smoker Chew tobacco use (# tins/day): No Frequency of alcohol use: None Drug Abuse: None Family History: DM, Hypertension Patient has suicidal ideation: No Patient has homicidal ideation: No - Past Medical History Cardiac Medical History: Reports: Hx Hypertension Denies: Hx Coronary Artery Disease, Hx Heart Attack Pulmonary Medical History: Denies: Hx Asthma, Hx Bronchitis, Hx COPD, Hx Pneumonia Neurological Medical History: Denies: Hx Cerebrovascular Accident, Hx Seizures Endocrine Medical History: Reports: Hx Diabetes Mellitus Type 2 Renal/ Medical History: Denies: Hx Peritoneal Dialysis Musculoskeletal Medical History: Denies Hx Arthritis Psychiatric Medical History: Reports: Hx Anxiety, Hx Attention Deficit Hyperactivity Disorder, Hx Depression, Hx Post Traumatic Stress Disorder Past Surgical History: Reports: Hx Orthopedic Surgery - Ganglion cyst - Immunizations Hx Diphtheria, Pertussis, Tetanus Vaccination: Yes Review of Systems - Review of Systems Notes: Constitutional: Negative for fever. HENT: Negative for sore throat. Eyes: Negative for visual changes. Cardiovascular: As per HPI. Respiratory: Negative for shortness of breath. Gastrointestinal: Negative for abdominal pain, vomiting or diarrhea. Genitourinary: Negative for dysuria. Musculoskeletal: Negative for back pain. Skin: Negative for rash. Neurological: Negative for headaches, weakness or numbness. 10 point ROS negative except as marked above and in HPI. Physical Exam - Vital signs Vitals: Temp Pulse Resp BP Pulse Ox 98.3 F 103 H 22 H 140/68 H 94 08/29/19 12:59 08/29/19 12:59 08/29/19 12:59 08/29/19 12:59 08/29/19 12:59 - Notes Notes: GENERAL: Well-developed well-nourished appearing in no acute distress. SKIN: Good turgor no rashes. HEAD: Normocephalic atraumatic. EYES: PERRLA. EOMI. Conjunctivae and sclerae clear. EARS: CANALS AND TMS CLEAR. NOSE: CLEAR. MOUTH: Moist mucosa. Good dentition. No stridor or edema. No drooling. NECK: Supple. No masses or thyromegaly. No adenopathy. Carotids 2+ without bruits. No JVD. BACK: Symmetrical without tenderness. CHEST: Respirations unlabored. Breath sounds clear and symmetrical. HEART: Regular rhythm. No murmur gallop or rub. ABDOMEN: Soft nontender without masses, organomegaly or rebound. Bowel sounds normally active. No bruits. GENITALIA: Deferred. EXTREMITIES: No edema. No calf tenderness. Cap refill less than 1.5 seconds. Dorsalis pedis and posterior tibial pulses 3+ and symmetrical. NEUROLOGICAL: GCS 15. Alert and oriented x3. Normal gait. Fluent speech. Cranial nerves II through XII intact. Sensorimotor and cerebellar normal. Normal tone. PSYCHIATRIC: Appropriate affect. Course - Re-evaluation Re-evalutation: 08/29/19 15:50 Initial troponin is normal. EKG is normal. Previous negative treadmill about 18 months ago. He does have multiple risk factors. His symptoms are more suggestive of reflux. These were also very brief. Plan at this time is to repeat a 3-hour EKG and troponin. His heart score currently is 3. If the repeat studies are unremarkable I think he is stable for outpatient follow-up and he will of course be encouraged to stop smoking. 08/29/19 17:13 Second EKG is unchanged from the first. The repeat troponin 3 hours after the first remains within normal range. I think this man is very stable for outpatient follow-up with his primary provider. I told him to get some sleep and stop smoking. Continue current medications. Return here as needed for new or worsening symptoms. Recommendations and findings have been explained to the patient and his family members and they are agreeable with current plan. - Vital Signs Vital signs: Temp Pulse Resp BP Pulse Ox 98.3 F 103 H 12 127/87 H 98 08/29/19 12:59 08/29/19 12:59 08/29/19 16:17 08/29/19 16:17 08/29/19 16:17 - Laboratory Result Diagrams: 08/29/19 13:29 08/29/19 13:29 Laboratory results interpreted by me: 08/29/19 08/29/19 08/29/19 13:29 13:29 13:29 WBC 10.6 H RBC 5.79 H Hgb 17.5 H Hct 52.2 H RDW 14.7 H D-Dimer Glucose 183 H Urine Glucose (UA) >=500 H 08/29/19 13:29 WBC RBC Hgb Hct RDW D-Dimer 3.69 H Glucose Urine Glucose (UA) - Diagnostic Test Radiology reviewed: Reports reviewed - Normal chest x-ray per radiologist - EKG Interpretation by Me Additional EKG results interpreted by me: 08/29/19 15:51 Twelve-lead EKG from 1253 hrs. today is reviewed contemporaneously by me showing a sinus tachycardia and a left anterior fascicular block neither of which are new findings for this patient. He has no acute ST or T wave changes. Discharge - Discharge Clinical Impression: Chest pain Qualifiers: Chest pain type: unspecified Qualified Code(s): R07.9 - Chest pain, unspecified Condition: Stable Disposition: HOME, SELF-CARE Instructions: Chest Pain of Unclear Cause ([facility]) Additional Instructions: Stop smoking. Return here as needed for new or worsening symptoms: Pain that is worsening or unimproved Uncontrolled vomiting High fever or shaking chills Overall worsening Follow-up with your primary care physician or payroll lead this week. Forms: Smoking Cessation Education Referrals: BRIGIDO BASS DO [Primary Care Provider] - Follow up as needed
[2019-08-29 16:51] VITALS: BP 127/87
--- NOTE | 2019-08-29 20:37 | EKG REPORT ---
SEVERITY:- ABNORMAL ECG - SINUS RHYTHM LEFT ANTERIOR FASCICULAR BLOCK : Confirmed by: Renan Ohara MD 29-Aug-2019 20:36:51
== END 2019-08-29 17:52 | disposition home or self-care (01) ==
LOC: ER 12:49
DX: R07.9 Chest pain, unspecified (principal); R00.0 Tachycardia, unspecified; I44.4 Left anterior fascicular block; F17.210 Nicotine dependence, cigarettes, uncomplicated; I10 Essential (primary) hypertension; E11.9 Type 2 diabetes mellitus without complications; Z79.4 Long term (current) use of insulin; Z79.899 Other long term (current) drug therapy; Z79.891 Long term (current) use of opiate analgesic
CPT/HCPCS: 36415; 71046; 80053; 81001; 84484; 85025; 85379; 93005; 93010; 99285

== ENCOUNTER 2019-12-27 16:44 | Emergency (ER) | payer MEDICAID ==
[2019-12-27 16:53] VITALS: BP 134/71
== END 2019-12-27 17:10 | disposition left against medical advice (07) ==
LOC: ER 16:44
DX: Z53.21 Procedure and treatment not carried out due to patient leaving prior to being seen by health care provider (principal)

== ENCOUNTER → 2020-02-02 | Outpatient (CLI) | payer MEDICAID | LOC: OD 16:05 | PROVIDERS: ATTEND Specialist | DX: I20.8 Other forms of angina pectoris (principal) | CPT/HCPCS: 36415; 84484 ==

== ENCOUNTER 2020-03-27 09:43 | Emergency (ER) | payer MEDICAID ==
[2020-03-27 09:51] VITALS: BP 119/59
== END 2020-03-27 10:13 | disposition left against medical advice (07) ==
LOC: ER 09:43
DX: Z53.21 Procedure and treatment not carried out due to patient leaving prior to being seen by health care provider (principal)
CPT/HCPCS: 82962